=== PATIENT | female | born 1975 | race Caucasian/White ===

== ENCOUNTER → 2016-10-05 | Day surgery (SDC) | payer OTHER ==
[~2016-10-05] VITALS: Ht 165.1 cm; Wt 76.8 kg
[~2016-10-05] MED LIST: LIDOCAINE 1% MDV 20ML VIAL As Ordered ONE; LIDOCAINE 2% INJ 100 MG/5 ML SDV (FOR ANES.) As Ordered ONE; LR 1,000 ML IV SCH; MEPERIDINE INJ 25 MG/ML VIAL (J2175) IV PRN; METOCLOPRAMIDE INJ 10MG/2ML VIAL (J2765) IV PRN; MIDAZOLAM INJ 2 MG/2 ML VIAL (J2250) As Ordered ONE; MONOTAB PO; ONDANSETRON 4MG/2ML VIAL (J2405) As Ordered ONE; ONDANSETRON 4MG/2ML VIAL (J2405) IV PRN; PERCOCET 5MG/325MG TAB PO PRN; PROPOFOL 200 MG/20 ML VIAL As Ordered ONE; SILVER NITRATE APPLICATOR As Ordered ONE; ZOLO25TA PO; dexameTHASONE 4 MG/ML 1ML VIAL (J1100) As Ordered ONE; fentaNYL 100 MCG/2 ML INJECTION (J3010) As Ordered ONE; fentaNYL 100 MCG/2 ML INJECTION (J3010) IV PRN
[2016-10-05 06:40] LABS: MEAN CORPUSCULAR HEMOGLOBIN 29.8 pg (27.0-33.0); MEAN CORPUSCULAR HGB CONC 35.1 g/dl (32.0-36.5); MEAN CORPUSCULAR VOLUME 85.1 fl (80.0-96.0); RED CELL DISTRIBUTION WIDTH 12.9 % (11.5-14.5); WHITE BLOOD COUNT 5.2 K/mm3 (4.0-10.0)
[2016-10-05 06:53] LABS: CONTROL LINE HCG INT CTR LINE PRESENT
[2016-10-05 10:10] VITALS: BP 110/55
--- NOTE | 2016-10-05 11:09 | RO ---
DATE OF PROCEDURE: 10/05/2016 PREOPERATIVE DIAGNOSIS: Six months irregular heavy bleeding and with indicated workup of endometrial biopsy that showed a possible malignancy, but unclear. POSTOPERATIVE DIAGNOSIS: Six months irregular heavy bleeding and with indicated workup of endometrial biopsy that showed a possible malignancy, but unclear. OPERATIVE PROCEDURE: Dilation and curettage. SURGEON: Dr. Guero Saeed ORGAN PIPE FINISHER: ANESTHESIA: Monitored anesthesia care (MAC) with cervical block. ESTIMATED BLOOD LOSS: 10 mL. DRAINS: None. REPLACED: 600 mL of lactated Ringer's. SPECIMEN: Endometrial curettings. INDICATION: Please see preoperative diagnosis. DESCRIPTION OF PROCEDURE: The patient was taken to the operating room with an IV in place and MAC anesthesia was obtained. She was placed in the low lithotomy position, prepped and draped in normal sterile fashion. I grasped the cervix at the anterior lip with a tenaculum and injected approximately 6 mL of 1% lidocaine at 2, 4, 8 and 10 and dilated the cervix to approximately 16 Yemeni using Hanks dilators. The patient was sounded appropriately to approximately 8-9 cm and the sharp curette was placed into the uterine cavity and the entire endometrial cavity was then curetted until a gritty texture was noted throughout. All tissue and blood was recovered to Telfa pads times two. There was never fear of uterine perforation. The tenaculum was removed. Silver nitrate was used at both puncture sites and at one lidocaine injection site to obtain hemostasis. Hemostasis was confirmed and the vaginal vault was cleared out of all clots and debris. All instruments were removed from the vagina and the patient was awakened from anesthesia and transferred to the recovery area in stable condition with all counts correct.
== END ==
LOC: M SDC 06:12
PROVIDERS: ATTEND Obstetrics & Gynecology
DX: N85.01 Benign endometrial hyperplasia (principal); F32.9 Major depressive disorder, single episode, unspecified; M51.9 Unspecified thoracic, thoracolumbar and lumbosacral intervertebral disc disorder; Z88.8 Allergy status to other drugs, medicaments and biological substances; Z79.899 Other long term (current) drug therapy
CPT/HCPCS: 36415; 58120; 84703; 85027; 86850; 86900; 86901; 88305; J1100; J2250; J2405; J3010

== ENCOUNTER 2016-11-09 09:28 | Inpatient (IN) | payer OTHER ==
[~2016-11-09] VITALS: Ht 165.1 cm; Wt 74.4 kg
[~2016-11-09 09:28] MED LIST changes: +BUPIVACAINE/EPIN 0.25% 30 ML VIAL As Ordered ONE; +KETOROLAC 60 MG/2 ML VIAL (J1885) As Ordered ONE; -LIDOCAINE 1% MDV 20ML VIAL As Ordered ONE; -LR 1,000 ML IV SCH; -MEPERIDINE INJ 25 MG/ML VIAL (J2175) IV PRN; -METOCLOPRAMIDE INJ 10MG/2ML VIAL (J2765) IV PRN; -ONDANSETRON 4MG/2ML VIAL (J2405) IV PRN; -PERCOCET 5MG/325MG TAB PO PRN; +ROCURONIUM BROMIDE 50 MG/5 ML VIAL As Ordered ONE; -SILVER NITRATE APPLICATOR As Ordered ONE; -dexameTHASONE 4 MG/ML 1ML VIAL (J1100) As Ordered ONE; -fentaNYL 100 MCG/2 ML INJECTION (J3010) As Ordered ONE; -fentaNYL 100 MCG/2 ML INJECTION (J3010) IV PRN; +fentaNYL 250 MCG/5 ML INJECTION (J3010) As Ordered ONE
[2016-11-09] MEDS ORDERED: LR 1,000 ML IV SCH ×2 (09:30→14:30)
[2016-11-09 10:04] LABS: BASO % 0.7 % (0.0-1.0); EOS # 0.1 K/mm3 (0.0-0.50); EOS % 2.8 % (0.0-3.0); LARGE UNSTAINED CELL # 0.1 K/mm3 (0.0-0.4); LARGE UNSTAINED CELL % 1.7 % (0.0-4.0); LYMPH # 1.2 K/mm3 (1.5-4.5); LYMPH % 23.4 % (24.0-44.0); MEAN CORPUSCULAR HEMOGLOBIN 28.9 pg (27.0-33.0); MEAN CORPUSCULAR HGB CONC 33.6 g/dl (32.0-36.5); MONO # 0.3 K/mm3 (0.0-0.8); MONO % 5.8 % (0.0-5.0); NEUTROPHILS # 3.2 K/mm3 (1.8-7.7); NEUTROPHILS % 65.7 % (36.0-66.0); PLATELET COUNT, AUTOMATED 258 k/mm3 (150-450); RED CELL DISTRIBUTION WIDTH 13.5 % (11.5-14.5); WHITE BLOOD COUNT 4.9 K/mm3 (4.0-10.0)
[2016-11-09 10:09] LABS: CONTROL LINE HCG INT CTR LINE PRESENT
[2016-11-09] MEDS ORDERED: dexameTHASONE 4 MG/ML 1ML VIAL (J1100) As Ordered ONE (11:40)
[2016-11-09] MEDS ORDERED: METOCLOPRAMIDE INJ 10MG/2ML VIAL (J2765) As Ordered ONE (11:41)
[2016-11-09] MEDS ORDERED: HYDROmorphone HCL 2 MG/ML 1ML VIAL (J1170) As Ordered ONE (12:43)
[2016-11-09] MEDS ORDERED: BUPIVACAINE/EPIN 0.25% 30 ML VIAL XX ONE (12:44)
[2016-11-09] MEDS ORDERED: ONDANSETRON 4MG/2ML VIAL (J2405) As Ordered ONE (13:09)
[2016-11-09] MEDS ORDERED: GLYCOPYRROLATE INJ 0.2 MG/ML 2 ML VIAL As Ordered ONE (13:10)
[2016-11-09] MEDS ORDERED: NEOSTIGMINE 1MG/ML 5 ML SYRINGE (J2710) As Ordered ONE (13:10)
[2016-11-09] MEDS ORDERED: METHYLENE BLUE 1% 10 ML VIAL (Q9968) As Ordered ONE (13:26)
[2016-11-09] MEDS ORDERED: NS 1,000 ML IV SCH (14:21)
[2016-11-09] MEDS ORDERED: MORPHINE PCA 1MG/ML 100ML CADD As Ordered ONE (14:28)
[2016-11-09] MEDS ORDERED: PROMETHAZINE INJ 25 MG/ML VIAL (J2550) As Ordered ONE (14:28)
[2016-11-09] MEDS ORDERED: NALOXONE INJ 0.4 MG/1 ML VIAL (J2310) IV PRN (14:30)
[2016-11-09] MEDS ORDERED: ONDANSETRON 4MG/2ML VIAL (J2405) IV PRN ×3 (14:30)
[2016-11-09] MEDS ORDERED: MORPHINE PCA 1MG/ML 100ML CADD IV PRN (14:30)
[2016-11-09] MEDS ORDERED: diphenhydrAMINE INJ 50MG/ML VIAL (J1200) IV PRN (14:30)
[2016-11-09] MEDS ORDERED: PERCOCET 5MG/325MG TAB PO PRN (14:30)
[2016-11-09] MEDS ORDERED: NALBUPHINE HCL 10 MG/ML AMP (J2300) IV PRN (14:30)
[2016-11-09] MEDS ORDERED: PROMETHAZINE INJ 25 MG/ML VIAL (J2550) IV PRN (14:30)
[2016-11-09] MEDS ORDERED: EPIDURAL/PCA KEYS XX PRN (14:30)
[2016-11-09] MEDS ORDERED: fentaNYL 100 MCG/2 ML INJECTION (J3010) IV PRN (14:30)
[2016-11-09] MEDS ORDERED: PROMETHAZINE INJ 25 MG/ML VIAL (J2550) IV ONE (14:45)
[2016-11-09 15:50] VITALS: BP 125/56
[2016-11-09 16:30] VITALS: BP 134/72
[2016-11-09] MEDS: LR 1,000 ML IV SCH ×2 (16:55→22:30)
[2016-11-09] MEDS: ACETAMINOPHEN 500 MG TAB PO SCH ×2 (16:56→21:49)
[2016-11-09 17:30] VITALS: BP 129/68
[2016-11-09 18:30] VITALS: BP 131/67
[2016-11-09 19:30] VITALS: BP 132/64
[2016-11-09 20:30] VITALS: BP 119/58
[2016-11-09] MEDS: DOCUSATE SODIUM 100 MG CAP PO SCH (21:48)
[2016-11-10] VITALS: BP 120/59
[2016-11-10 04:00] VITALS: BP 97/55
[2016-11-10] MEDS: LR 1,000 ML IV SCH (04:35)
[2016-11-10 07:19] LABS: BASO % 0.1 % (0.0-1.0); EOS % 0.2 % (0.0-3.0); LARGE UNSTAINED CELL # 0.1 K/mm3 (0.0-0.4); LARGE UNSTAINED CELL % 1.1 % (0.0-4.0); LYMPH # 1.3 K/mm3 (1.5-4.5); LYMPH % 10.4 % (24.0-44.0); MEAN CORPUSCULAR HEMOGLOBIN 29.5 pg (27.0-33.0); MEAN CORPUSCULAR HGB CONC 34.4 g/dl (32.0-36.5); MEAN CORPUSCULAR VOLUME 85.8 fl (80.0-96.0); MONO # 0.5 K/mm3 (0.0-0.8); MONO % 4.6 % (0.0-5.0); NEUTROPHILS # 9.2 K/mm3 (1.8-7.7); NEUTROPHILS % 83.5 % (36.0-66.0); PLATELET COUNT, AUTOMATED 216 k/mm3 (150-450); RED CELL DISTRIBUTION WIDTH 13.4 % (11.5-14.5)
--- NOTE | 2016-11-10 07:21 | RO ---
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 POSTOPERATIVE DIAGNOSIS: Complex hyperplasia without atypia. PROCEDURE: SURGEON: Dylan Dickens MD HEAT REGULATOR: Deonna Bansal MD ANESTHESIA: general So. IV FLUIDS: 2000 mL isotonic fluid. URINE OUTPUT: 400 mL Mendoza catheter. ESTIMATED BLOOD LOSS: 150 mL. INDICATION FOR SURGERY: Patient is a 41-year-old, (G) 2, para (P) 2, with abnormal uterine bleeding, on endometrial biopsy and subsequent dilation and curettage (D and C) found to have complex hyperplasia without atypia. The patient had a long discussion in regards to possible treatments and risks/benefits/alternatives/indications for both and elects to undergo surgical management via a hysterectomy. The risks, benefits, indications and alternatives to the procedure were reviewed with the patient and informed consent was obtained. The patient was taken to the operating room where general anesthesia was obtained without difficulty. The patient was then placed in a low lithotomy position using Ramon stirrups and arms were tucked with padding. An exam under anesthesia demonstrated a long vaginal length, approximately 8 week sized uterus with moderate descent. No abnormal palpated or fullness on adnexal exam. She was then prepped and draped in a normal sterile fashion and a Mendoza catheter was placed. After a time-out was performed, a sterile speculum was placed in the patient's vagina and the cervix was visualized. A single tooth tenaculum was used to grasp the anterior lip of the cervix. An #0 Vicryl stitch was used for uterine manipulation and the single tooth tenaculum was removed. A [employer] uterine manipulator with a large colpotomy ring and a vaginal occluder balloon were placed to provide means to manipulate the uterus. The speculum was then removed from the patient's vagina. After gloves were exchanged, attention was then returned to the patient's abdomen where a 5 mm infraumbilical incision was made. A 5 mm trocar and sleeve were carefully introduced into the peritoneal cavity under direct visualization in a 9 degree angle while tenting up the abdominal wall. Intraperitoneal placement was confirmed under direct visualization with the laparoscope with an entry pressure of less than 5 mmHg. A pneumoperitoneum was established and a 360 degree evaluation was performed demonstrating no injury at site as well as normal appearing liver edge, spleen, gallbladder and intestines. After several liters of CO2 gas was performed to a maximum pressure of 15 mmHg, two additional port sites including a 5 mm left lower quadrant and a 5 mm right lower quadrant were placed under direct visualization, stabilizing the uterus with the manipulator and with the use of a blunt grasper. The LigaSure device was used to clamp, cut and ligate the round ligaments bilaterally. The anterior broad ligament was then incised along the bladder reflection bilaterally and the bladder was dissected off the lower uterine segment until the endopelvic fascia was visualized. Prior to this, the ureters on both sides were identified and followed along the entire length of the pelvic sidewall. The bilateral fallopian tubes and utero-ovarian ligaments were then ligated as close as possible to the uterine corpus with the assistance of a harmonic scalpel. The pedicles were reinspected and excellent hemostasis noted. The uterine arteries were then identified, skeletonized, electro dissected and ligated using LigaSure device. The uterosacral and cardinal ligaments were transected bilaterally using a combination of LigaSure and a harmonic. The anterior and posterior colpotomy was completed in a 360 degrees fashion using harmonic scalpel using the colpotomy ring as a guide. The entire cervix and uterus were successfully amputated from the vagina and removed vaginally. Excellent hemostasis was noted. Next, the vagina was occluded with a sterile glove to maintain pneumoperitoneum and noticed no acute bleeding. Attention was then turned vaginal where the vaginal cuff was closed with #0 Vicryl in a running locked fashion. Hemostasis was appreciated at the end of this. The cystoscope was then primed and advanced through the urethra into the bladder after the Mendoza catheter was removed in routine fashion. Methylene blue was provided to this. Both uterine orifices were identified and bilateral efflux of methylene blue stained urine was visualized. A survey of the bladder demonstrated no defects or visible suture. The cystoscope was then removed in routine fashion and a Mendoza catheter replaced to again drain the bladder. After gown and gloves were again exchanged, attention was returned to the abdomen. A pneumoperitoneum was then reestablished and was copiously irrigated. All pedicles were noted to be hemostatic again. The pneumoperitoneum was then released and the gas was removed in routine fashion with the remaining ports being removed under direct visualization. The skin incisions were then reapproximated with #4-0 Monocryl and covered with Dermabond. 1/4% Marcaine with epinephrine was then utilized for anesthetic for all trocar sites. A manual exam was performed and the vagina demonstrated excellent suspension and elevation. A vaginal sweep demonstrated no retained foreign objects within the vagina. At the completion of the case, sponge, needle and lap counts correct times two. The patient was taken to recovery in stable condition. Prior to skin incision, 2 grams of Ancef were provided in routine fashion.
[2016-11-10] MEDS ORDERED: oxyCODONE 5MG TAB PO PRN (07:30)
[2016-11-10 08:00] VITALS: BP 131/64
[2016-11-10] MEDS: ACETAMINOPHEN 500 MG TAB PO SCH ×2 (09:21→13:31)
[2016-11-10] MEDS: DOCUSATE SODIUM 100 MG CAP PO SCH (09:21)
[2016-11-10 12:00] VITALS: BP 125/60
[2016-11-10] MEDS ORDERED: TYLE500T78 PO (13:53)
[2016-11-10] MEDS ORDERED: COLA100C PO (13:53)
== END 2016-11-10 14:20 | disposition home or self-care (01) | DRG 743 ==
LOC: M OR 09:28 → M PED 15:59
PROVIDERS: ADMIT Student in an Organized Health Care Education/Training Program; ATTEND Student in an Organized Health Care Education/Training Program
PROC: 0UTC4ZZ Resection of Cervix, Percutaneous Endoscopic Approach (ICD-10-PCS; 2016-11-09)
PROC: 0UT74ZZ Resection of Bilateral Fallopian Tubes, Percutaneous Endoscopic Approach (ICD-10-PCS; 2016-11-09)
PROC: 0TJB8ZZ Inspection of Bladder, Via Natural or Artificial Opening Endoscopic (ICD-10-PCS; 2016-11-09)
PROC: 0UT94ZZ Resection of Uterus, Percutaneous Endoscopic Approach (ICD-10-PCS; principal; 2016-11-09 11:00)
DX: N85.01 Benign endometrial hyperplasia (principal); F32.9 Major depressive disorder, single episode, unspecified; Z79.899 Other long term (current) drug therapy

== ENCOUNTER → 2016-11-28 | Outpatient (CLI) | payer OTHER ==
[~2016-11-28] MED LIST changes: -BUPIVACAINE/EPIN 0.25% 30 ML VIAL As Ordered ONE; +COLA100C PO; -KETOROLAC 60 MG/2 ML VIAL (J1885) As Ordered ONE; -LIDOCAINE 2% INJ 100 MG/5 ML SDV (FOR ANES.) As Ordered ONE; -MIDAZOLAM INJ 2 MG/2 ML VIAL (J2250) As Ordered ONE; -ONDANSETRON 4MG/2ML VIAL (J2405) As Ordered ONE; -PROPOFOL 200 MG/20 ML VIAL As Ordered ONE; -ROCURONIUM BROMIDE 50 MG/5 ML VIAL As Ordered ONE; +TYLE500T78 PO; -fentaNYL 250 MCG/5 ML INJECTION (J3010) As Ordered ONE
--- NOTE | 2016-11-28 17:25 | REP ---
RENAL AND BLADDER ULTRASOUND: Real-time sonographic evaluation of the kidneys are performed. Kidneys are normal in size and echotexture, right kidney measuring 11.4 x 4.1 x 5.3 cm and left kidney 11.4 x 5.0 x 4.6 cm. There is no hydronephrosis or nephrolithiasis. Bilaterally. Hypoechoic nodule in the liver measures 1.8 x 2.3 x 1.7 cm, probably representing a hemangioma. Urinary bladder is distended with no mass or calculus. There are bilateral ureteral jets of the urinary bladder with Doppler color evaluation. IMPRESSION: Negative renal and bladder ultrasound. Hyperechoic nodule in the liver probably represents a hemangioma 1.8 x 2.3 x 1.[address] or MRI with contrast to evaluate. Signed by Guero Cohen MD 11/29/2016 03:28 P
== END ==
LOC: M RAD 16:26
PROVIDERS: ATTEND Obstetrics & Gynecology
DX: K76.89 Other specified diseases of liver (principal); R39.198 Other difficulties with micturition

== ENCOUNTER → 2018-04-20 | Outpatient (CLI) | payer OTHER | LOC: M RAD 15:18 | DX: Z12.31 Encounter for screening mammogram for malignant neoplasm of breast (principal); N60.31 Fibrosclerosis of right breast; N60.32 Fibrosclerosis of left breast | CPT/HCPCS: 77067 ==

== ENCOUNTER → 2018-11-22 | Outpatient (CLI) | payer OTHER ==
[~2018-11-22] MED LIST changes: -COLA100C PO; +COLA100C5 PO
--- NOTE | 2018-12-05 00:52 | ECWPNPC ---
PATIENT NAME: JULES LOZANO : 1975 GENDER: FEMALE VISIT DATE: 11/22/2018 DISCHARGE DATE: 11/22/18 1625 VISIT LOCKED DATE TIME: PHYSICIAN: KATE CLARK MD RESOURCE: KATE CLARK MD REASON FOR APPOINTMENT 1. LUMBAR PAIN HISTORY OF PRESENT ILLNESS FALL RISK SCREENING: SCREENING : NO FALLS IN THE PAST YEAR. PAIN SCREENING: PATIENT HAS A COMPLAINT OF ACUTE OR CHRONIC PAIN :YES 43 YEAR OLD FEMALE PATIENT WITH A HISTORY OF CHRONIC LOW BACK PAIN. THE PATIENT DESCRIBES THE PAIN ACHING, SHARP, TENDER, AND CONTINUOUS WITH A PAIN SCORE OF 1-9/10 DEPENDING ON PHYSICAL ACTIVITY. THE PATIENT SAYS THAT HER PAIN STARTED ABOUT A YEAR AND A HALF AGO SPONTANEOUSLY. THE PATIENT SAYS THAT HER PAIN IS MAINLY LOCATED AT THE RIGHT SIDE OF HER LOW BACK. THE PATIENT SAYS THE PAIN SOMETIMES GOES DOWN HER RIGHT LEG, BUT SHE IS CURRENTLY USING GABAPENTIN THAT IS HELPING WITH THE PAIN DOWN HER LEG. PATIENT DENIES UNEXPLAINABLE WEIGHT LOSS, FEVER, CHILLS, NEW CHANGES ON HER URINARY OR BOWEL CONTROL. CURRENT MEDICATIONS TAKING ZOLOFT 25 MG TABLET 1 TABLET ORALLY ONCE A DAY TAKING GABAPENTIN 300 MG CAPSULE 1 CAPSULE ORALLY ONCE A DAY NOT-TAKING FLONASE 50 MCG/DOSE INHALER 2 SPRAYS IN EACH NOSTRIL NASALLY ONCE A DAY MEDICATION LIST REVIEWED AND RECONCILED WITH THE PATIENT PAST MEDICAL HISTORY CHRONIC LOW BACK ANXIETY ALLERGIES ASPIRIN: SWELLING - ALLERGY IBUPROFEN: SWELLING - ALLERGY SURGICAL HISTORY HYSTERECTOMY 2017 FAMILY HISTORY FATHER: ALIVE 66 YRS MOTHER: ALIVE 65 YRS [facility]. SOCIAL HISTORY GENERAL: TOBACCO USE ARE YOU A:FORMER SMOKER HOW LONG HAS IT BEEN SINCE YOU LAST SMOKED?> 10 YEARS LATEX QUESTIONNAIRE LATEX ALLERGY : HAVE YOU EVER DEVELOPED ANY TYPE OF REACTION AFTER HANDLING LATEX PRODUCTS SUCH RUBBER GLOVES, CONDOMS, DIAPHRAGMS, BALLOONS, SOCKS, OR UNDERWEAR?NO LATEX ALLERGY : HAVE YOU EVER DEVELOPED ANY TYPE OF REACTION DURING OR AFTER DENTAL APPOINTMENT, VAGINAL/RECTAL EXAMINATION, SURGICAL PROCEDURE, OR ANY OTHER EXPOSURE?NO LATEX RISK : HAVE YOU EVER HAD ANY DIFFICULTY BREATHING OR HIVES AFTER EATING OR HANDLING ANY FRUITS, OR VEGETABLES; SUCH KIWI, BANANAS, STONE FRUITS, OR CHESTNUTSNO LATEX RISK : DO YOU HAVE A PREVIOUS PERSONAL HISTORY OF MORE THAN NINE SURGERIES, SPINA BIFIDA, OR REPEATED CATHERTIZATIONS? NO LATEX RISK : ARE YOU FREQUENTLY EXPOSED TO LATEX PRODUCTS IN YOUR OCCUPATION?NO DATE ASKED : 11/22/2018 CAFFEINE CAFFEINE USE?YES HOW OFTEN AND HOW MUCH? OCCASIONAL OCCUPATION: ACTIVE . DIET: REGULAR. EXERCISE: NO REGULAR EXERCISE, WALKS. MARITAL STATUS: . NEW PATIENT PAIN DIARY PATIENT DESCRIBES PAIN :ACHING, HAVE IT ALL THE TIME, IT COMES AND GOES, SHARP FROM 0-10, WHAT LEVEL IS YOUR PAIN TODAY?1 PRECIPITATING FACTORS FIRST WAKING UP IN MORNING, RUNNING, STANDING ALLEVIATING FACTORS MEDICATIONS IMPACT ON FUNCTION MAJOR IMPACT, UNABLE TO DO DAILY DUTIES IS THERE A CHANCE YOU COULD BE ?NO HAVE YOU BEEN SICK IN THE LAST WEEK (COLD, COUGH, FEVER, FLU, ETC)NO DO YOU TAKE ANY BLOOD THINNERS?NO DO YOU HAVE ANY RASHES OR OPEN SORES?NO ANY CHANGE IN BOWEL OR BLADDER CONTROL?NO ARE YOU ALLERGIC TO SHELLFISH OR IV DYE?NO ARE YOU DIABETIC?NO DO YOU HAVE A PACEMAKER OR DEFIBRILLATOR?NO ANY NEW PROBLEMS WITH MEDICINES OR NEW ALLERGIESNO ANY NEW PATTERNS OF PAIN OR NUMBNESS?NO ANY CHANGE IN YOUR MEDICAL CONDITION?NO HAVE YOU FALLEN IN THE LAST 6 MONTHS?NO DO YOU USE ANY TYPE OF TOBACCO (SMOKE, SMOKELESS, CHEW, ETC.)NO ARE YOU ABUSED, NEGLECTED, OR IN AN UNSAFE ENVIRONMENT?NO DO YOU HAVE THOUGHTS OF HURTING YOURSELF OR SOMEONE ELSE?YES PAIN CLINIC PFS, CLERGY, PUBLIC HEALTH REFERRALS WAS THE PROVIDER NOTIFIED OF ANY PERTINENT INFO?YES HAS THE PATIENT BEEN EDUCATED REGARDING HIS/HER PLAN OF CARE?YES ORIENTED TO [facility] HAS THE PATIENT BEEN EDUCATED REGARDING PAIN, THE RISK FOR PAIN, THE IMPORTANCE OF EFFECTIVE PAIN MANAGEMENT, AND THE PAIN ASSESSMENT PROCESS?YES ADVANCE DIRECTIVE ADVANCE DIRECTIVE DISCUSSED WITH PATIENT:YES NO HCP, ACTIVE HOSPITALIZATION/MAJOR DIAGNOSTIC PROCEDURE NO HOSPITALIZATION HISTORY. REVIEW OF SYSTEMS REVIEWED BY: PROVIDER: KATE CLARK MD . CONSTITUTIONAL: ANY CHANGE IN YOUR MEDICAL CONDITION? NO . CHILLS NO . FEVER NO . INFECTION: DO YOU HAVE NEW INFECTIONS? NO . DO YOU HAVE HISTORY OF MRSA? NO . MUSCULOSKELETAL: ANY NEW PATTERNS OF PAIN OR NUMBNESS? YES, ARM GETTING WORSE . SYTEMIC LUPUS NO . GASTROENTEROLOGY: ANY NEW CHANGE IN BOWEL CONTROL? NO . BARRETTS ESOPHAGUS NO . CIRRHOSIS NO . HEPATITIS NO . LIVER FAILURE NO . ACID REFLUX NO . UNEXPLAINED WEIGHT LOSS NO . GENITOURINARY: ANY NEW CHANGE IN BLADDER CONTROL? NO . IS THERE A CHANCE YOU COULD BE ? NO . HEMATOLOGY/LYMPH: DO YOU TAKE ANY BLOOD THINNERS? (FOR EXAMPLE- COUMADIN, PLAVIX, AGGRENOX, PLATEL, PRADAXA, OR XARELTO) NO . WHEN WAS YOUR LAST DOSE? DATE: TIME: . LOW PLATELET COUNT NO . SICKLE CELL DISEASE NO . VON WILLIEBRANDS NO . FACTOR V LEIDEN NO . THALLASEMIA NO . ANEMIA NO . EASY BRUISING NO . NEUROLOGY: HAVE YOU FALLEN IN THE PAST 12 MONTHS? NO . ANY NEW EXTREMITY NUMBNESS OR WEAKNESS? NO . HEAD INJURY NO . DEMENTIA NO . CEREBRAL PALSY NO . MULTIPLE SCLEROSIS NO . DIZZINESS NO . HEADACHE NO . STROKES NO . VERTIGO NO . CARDIOLOGY: DO YOU HAVE A PACEMAKER OR DEFIBRILLATOR? NO . ANGINA NO . HEART ATTACK NO . HEART SURGERY NO . CONGESTIVE HEART FAILURE/FLUID OVERLOAD NO . CHEST PAIN NO . HIGH BLOOD PRESSURE NO . IRREGULAR HEART BEAT NO . RESPIRATORY: HAVE YOU BEEN SICK IN THE PAST WEEK? NO . FEVER NO . FLU LIKE SYMPTOMS? NO . CPAP NO . BYPAP NO . ASTHMA NO . EMPHYSEMA NO . CHRONIC LUNG DISEASES NO . SHORTNESS OF BREATH ON EXERTION NO . COUGH NO . SNORING NO . INTEGUMENTARY: DO YOU HAVE ANY RASHES OR OPEN SORES? NO . ALLERGIC/IMMUNO: ARE YOU ALLERGIC TO IV DYE? NO . ANY NEW ALLERGIES? NO . PSYCHIATRIC: DO YOU HAVE THOUGHTS OF HURTING YOURSELF OR SOMEONE ELSE? NO . ARE YOU ABUSED, NEGLECTED, OR IN AN UNSAFE ENVIRONMENT? NO . ENDOCRINOLOGY: ARE YOU DIABETIC? NO . THYROID DISORDER NO . OTHER: DO YOU NEED ANY PRESCRIPTIONS? NO . IF YES, PLEASE LIST: ____ . ANY NEW PROBLEMS WITH YOUR MEDICATIONS? NO . WHEN DID YOU LAST EAT? ____ . WHEN DID YOU LAST DRINK? ____ . WHAT DID YOU LAST DRINK? ____ . NAME OF PERSON DRIVING YOU HOME? SHAHZAD LOZANO . DO YOU HAVE ANY OTHER QUESTIONS OR CONCERNS NO . VITAL SIGNS WT 176 LBS, HT 66 IN, BMI 28.40 INDEX, BP 135/67 MM HG, HR 64 /MIN, RR 16 /MIN, TEMP 97.4 F, OXYGEN SAT % 98%, SAFE IN ENV? (Y/N) Y, NA INITIALS SC 14:38, REVIEWED BY: SHIKHA. EXAMINATION GENERAL EXAMINATION: PATIENT IS ALERT O X 3 AND COOPERATIVE. LUNGS CLEAR, TO AUSCULTATION. HEART: NO MURMURS OR GALLOPS; FACIAL CRANIAL NERVES ARE GROSSLY NORMAL. GOOD SYMMETRY OF FACIAL MUSCLE MOVEMENT. NORMAL VISUAL RETANA. TENDERNESS OVER THE RIGHT SACROILIAC JOINT. FABERE TEST IS POSITIVE FOR RIGHT SACROILIAC JOINT DYSFUNCTION. MRI OF THE LUMBAR SPINE DONE ON 08/15/2017 SHOWS BULGING DISCS AND FACET ARTHROPATHY CHANGES AT MULTIPLE LEVELS. 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 LOZANO'S PAIN MANAGEMENT CASE. DUE TO THE SACROILIAC JOINT DYSFUNCTION, I WOULD LIKE TO MOVE FORWARD WITH A RIGHT SACROILIAC JOINT BLOCK AT THIS TIME. WE DISCUSSED THE BENEFITS, RISKS, AND ALTERNATIVES OF THE INJECTION AND THE PATIENT WOULD LIKE TO PROCEED. THE PATIENT WILL FOLLOW UP A FEW WEEKS AFTER THE INJECTION. INSTRUCTIONS WERE GIVEN, QUESTIONS WERE ANSWERED, PATIENT REPORTS UNDERSTANDING AND AGREES WITH THE PLAN. I, JP MONTES, DOCUMENTED THE ABOVE INFORMATION ACTING A SCRIBE FOR DR. CLARK. I HAVE REVIEWED THE ABOVE DOCUMENT, WRITTEN BY JP ROSALESIBLuis AND I VERIFY THAT IT IS ACCURATE. DEAR DR. PAYTON:THANK YOU FOR YOUR KIND REFERRAL OF MRS. LOZANO. IF YOU WANT TO DISCUSS HER CASE WITH ME PLEASE CALL ME AT THE PAIN CENTER AT [phone]. SINCERELY,KATE CLARK, [facility] . PROCEDURE CODES FA211 ESTABILISHED PATIENT [facility] FACILITY CHARGE [id number] CURRENT MEDS W/DOSAGES DOCUMENTED G8730 PAIN ASSESS POS TOOL F/U PLAN DOC DISPOSITION & COMMUNICATION FOLLOW UP 3 WEEKS ELECTRONICALLY SIGNED BY KATE CLARK MD, MD ON 12/04/2018 AT 11:37 AM EDT DISCLAIMER : THIS IS A VISIT SUMMARY EXTRACTED FROM THE [facility] CHART. IT IS NOT A COPY OF THE [facility] PROGRESS NOTE. MTDD
== END ==
LOC: M PAIN 14:30
PROVIDERS: ATTEND Anesthesiology
DX: M46.1 Sacroiliitis, not elsewhere classified (principal); M54.16 Radiculopathy, lumbar region; G89.29 Other chronic pain; F41.9 Anxiety disorder, unspecified; Z79.899 Other long term (current) drug therapy; Z88.6 Allergy status to analgesic agent; Z87.891 Personal history of nicotine dependence

== ENCOUNTER → 2018-12-04 | Outpatient (CLI) | payer OTHER ==
[~2018-12-04] MED LIST changes: +BUPIVACAINE HCL 0.25% 30 ML VIAL As Ordered ONE; +ISOVUE-M 300 61% 15ML VIAL (Q9967) As Ordered ONE; +LIDOCAINE 1% SDV INJ 30 ML VIAL As Ordered ONE; +TRIAMCINOLONE ACETONIDE SUSP 40 MG/ML VIAL (J3301) As Ordered ONE; +diazePAM 5 MG TAB As Ordered ONE; +oxyCODONE 5MG TAB As Ordered ONE
--- NOTE | 2018-12-05 10:18 | REP ---
PARTIAL SI JOINT SERIES: Two views. HISTORY: Bilateral sacroiliac joint block for pain. 1 minute 5 seconds of fluoroscopy time is reported. FINDINGS: A sequence of two last image hold fluoroscopically obtained spot radiographs of the SI joints document needle position and contrast injection associated with SI joint injection procedure. Electronically Signed by Aric Burden MD 12/05/2018 03:53 P
--- NOTE | 2018-12-09 23:53 | ECWPNPC ---
PATIENT NAME: JULES LOZANO : 1975 GENDER: FEMALE VISIT DATE: 12/04/2018 DISCHARGE DATE: 12/04/18 1316 VISIT LOCKED DATE TIME: PHYSICIAN: KATE CLARK MD RESOURCE: KATE CLARK MD REASON FOR APPOINTMENT 1. BILAT SIJ PENDING AUTH HISTORY OF PRESENT ILLNESS HISTORY OF PRESENT ILLNESS: PAIN THE PATIENT DESCRIBES THE PAIN... FALL RISK SCREENING: SCREENING :NO FALLS REPORTED IN THE LAST YEAR CURRENT MEDICATIONS TAKING ZOLOFT 25 MG TABLET 1 TABLET ORALLY ONCE A DAY, NOTES: 12/03 2200 TAKING GABAPENTIN 300 MG CAPSULE 1 CAPSULE ORALLY ONCE A DAY, NOTES: 12/03 1200 DISCONTINUED FLONASE 50 MCG/DOSE INHALER 2 SPRAYS IN EACH NOSTRIL NASALLY ONCE A DAY, NOTES: NEVER TOOK MEDICATION LIST REVIEWED AND RECONCILED WITH THE PATIENT PAST MEDICAL HISTORY CHRONIC LOW BACK ANXIETY ALLERGIES ASPIRIN: SWELLING - ALLERGY IBUPROFEN: SWELLING - ALLERGY SURGICAL HISTORY HYSTERECTOMY 2016 FAMILY HISTORY FATHER: ALIVE 66 YRS, NO KNOWN MEDICAL PROBLEMS MOTHER: ALIVE 65 YRS, NO KNOWN MEDICAL PROBLEMS [facility]. SOCIAL HISTORY GENERAL: TOBACCO USE ARE YOU A:FORMER SMOKER HOW LONG HAS IT BEEN SINCE YOU LAST SMOKED?> 10 YEARS LATEX QUESTIONNAIRE LATEX ALLERGY : HAVE YOU EVER DEVELOPED ANY TYPE OF REACTION AFTER HANDLING LATEX PRODUCTS SUCH RUBBER GLOVES, CONDOMS, DIAPHRAGMS, BALLOONS, SOCKS, OR UNDERWEAR?NO LATEX ALLERGY : HAVE YOU EVER DEVELOPED ANY TYPE OF REACTION DURING OR AFTER DENTAL APPOINTMENT, VAGINAL/RECTAL EXAMINATION, SURGICAL PROCEDURE, OR ANY OTHER EXPOSURE?NO LATEX RISK : HAVE YOU EVER HAD ANY DIFFICULTY BREATHING OR HIVES AFTER EATING OR HANDLING ANY FRUITS, OR VEGETABLES; SUCH KIWI, BANANAS, STONE FRUITS, OR CHESTNUTSNO LATEX RISK : DO YOU HAVE A PREVIOUS PERSONAL HISTORY OF MORE THAN NINE SURGERIES, SPINA BIFIDA, OR REPEATED CATHERTIZATIONS? NO LATEX RISK : ARE YOU FREQUENTLY EXPOSED TO LATEX PRODUCTS IN YOUR OCCUPATION?NO DATE ASKED : 12/04/2018 ALCOHOL SCREENING DID YOU HAVE A DRINK CONTAINING ALCOHOL IN THE PAST YEAR?YES HOW OFTEN DID YOU HAVE A DRINK CONTAINING ALCOHOL IN THE PAST YEAR?TWO TO THREE TIMES PER WEEK (3 POINTS) HOW MANY DRINKS DID YOU HAVE ON A TYPICAL DAY WHEN YOU WERE DRINKING IN THE PAST YEAR?1 OR 2 (0 POINTS) HOW OFTEN DID YOU HAVE SIX OR MORE DRINKS ON ONE OCCASION IN THE PAST YEAR?NEVER (0 POINTS) POINTS3 INTERPRETATIONPOSITIVE RECREATIONAL DRUG USE DRUG USE?NO CAFFEINE CAFFEINE USE?YES HOW OFTEN AND HOW MUCH? OCCASIONAL ANGLICAN [id number] JEWISH LANGUAGE LANGUAGES SPOKEN:GREEK EDUCATION LEVEL OF EDUCATION:FINISHED COLLEGE LEARNING BARRIERS / SPECIAL NEEDS BARRIERS TO LEARNING?NO HEARING IMPAIRED?NO VISION IMPAIRED?YES :CORRECTIVE LENSES COGNITIVELY IMPAIRED?NO READINESS TO LEARN?YES LEARNING PREFERENCES?NO LEARNING CAPABILITIES PRESENT?YES EMOTIONAL BARRIERS?NO SPECIAL DEVICES?NO WOOD GETTER NEEDED?NO DOMESTIC VIOLENCE DO YOU FEEL SAFE IN YOUR ENVIRONMENT?YES OCCUPATION: ACTIVE . DIET: REGULAR. EXERCISE: NO REGULAR EXERCISE, WALKS. MARITAL STATUS: . PAIN CLINIC PFS, CLERGY, PUBLIC HEALTH REFERRALS WAS THE PROVIDER NOTIFIED OF ANY PERTINENT INFO? N/A HAS THE PATIENT BEEN EDUCATED REGARDING HIS/HER PLAN OF CARE?YES ORIENTED TO [facility] HAS THE PATIENT BEEN EDUCATED REGARDING PAIN, THE RISK FOR PAIN, THE IMPORTANCE OF EFFECTIVE PAIN MANAGEMENT, AND THE PAIN ASSESSMENT PROCESS?YES ADVANCE DIRECTIVE ADVANCE DIRECTIVE DISCUSSED WITH PATIENT:YES 12/04/18 PT. DOES NOT HAVE ANY ADVANCED DIRECTIVES AND SHE DECLINES INFORMATION ON HCP AT THIS TIME. AD HOSPITALIZATION/MAJOR DIAGNOSTIC PROCEDURE HYSTERECTOMY 2017 REVIEW OF SYSTEMS REVIEWED BY: PROVIDER: . CONSTITUTIONAL: ANY CHANGE IN YOUR MEDICAL CONDITION? NO . CHILLS NO . FEVER NO . INFECTION: DO YOU HAVE NEW INFECTIONS? NO . DO YOU HAVE HISTORY OF MRSA? NO . MUSCULOSKELETAL: ANY NEW PATTERNS OF PAIN OR NUMBNESS? NO . GASTROENTEROLOGY: ANY NEW CHANGE IN BOWEL CONTROL? NO . GENITOURINARY: ANY NEW CHANGE IN BLADDER CONTROL? NO . IS THERE A CHANCE YOU COULD BE ? NO . HEMATOLOGY/LYMPH: DO YOU TAKE ANY BLOOD THINNERS? (FOR EXAMPLE- COUMADIN, PLAVIX, AGGRENOX, PLATEL, PRADAXA, OR XARELTO) NO . WHEN WAS YOUR LAST DOSE? DATE: TIME: . NEUROLOGY: HAVE YOU FALLEN IN THE PAST 12 MONTHS? YES X 1 SLIPPED ON ICE, NO INJURY . ANY NEW EXTREMITY NUMBNESS OR WEAKNESS? NO . CARDIOLOGY: DO YOU HAVE A PACEMAKER OR DEFIBRILLATOR? NO . RESPIRATORY: HAVE YOU BEEN SICK IN THE PAST WEEK? NO . FEVER NO . FLU LIKE SYMPTOMS? NO . COUGH NO . INTEGUMENTARY: DO YOU HAVE ANY RASHES OR OPEN SORES? NO . ALLERGIC/IMMUNO: ARE YOU ALLERGIC TO IV DYE? NO . ANY NEW ALLERGIES? NO . PSYCHIATRIC: DO YOU HAVE THOUGHTS OF HURTING YOURSELF OR SOMEONE ELSE? NO . ARE YOU ABUSED, NEGLECTED, OR IN AN UNSAFE ENVIRONMENT? NO . ENDOCRINOLOGY: ARE YOU DIABETIC? NO . OTHER: DO YOU NEED ANY PRESCRIPTIONS? NO . IF YES, PLEASE LIST: ____ . ANY NEW PROBLEMS WITH YOUR MEDICATIONS? NO . WHEN DID YOU LAST EAT? 12/03 1799 . WHEN DID YOU LAST DRINK? 12/04 629 . WHAT DID YOU LAST DRINK? WATER . NAME OF PERSON DRIVING YOU HOME? ARELY CARRIZALES . DO YOU HAVE ANY OTHER QUESTIONS OR CONCERNS NO PT. HAS NOT HAD ANY VACCINES IN THE PAST 30 DAYS . VITAL SIGNS WT 173.0 LBS, HT 66 IN, BMI 27.92 INDEX, BP 117/69 MM HG, HR 63 /MIN, RR 16 /MIN, TEMP 97.8 F, OXYGEN SAT % 99%, SAFE IN ENV? (Y/N) Y, NA INITIALS AW 1052, REVIEWED BY: AD, LMP: N/A. ASSESSMENTS SACROILIITIS, NOT ELSEWHERE CLASSIFIED - M46.1 (PRIMARY) TREATMENT SACROILIITIS, NOT ELSEWHERE CLASSIFIED [facility] FLUORO GUIDANCE (PAIN)[id number] PROCEDURES PN SI PRE PROCEDURE DIAGNOSIS SACROILIITIS, SACROILIAC JOINT DYSFUNCTION POST PROCEDURE DIAGNOSIS SACROILIITIS, SACROILIAC JOINT DYSFUNCTION PROCEDURE BILATERAL SACROILIAC JOINT BLOCK SURGEON DR. KATE CLARK CAR ATTENDANT NONE ANESTHESIA LOCAL PRE PROCEDURE NOTE PATIENT WITH HISTORY OF CHRONIC LOW BACK PAIN. I EVALUATED THE PATIENT AND REVIEWED THE CHART. I WENT OVER THE RISKS, ALTERNATIVES, AND BENEFITS ASSOCIATED WITH THIS PROCEDURE. THE PATIENT WOULD LIKE TO PROCEED AND GAVE CONSENT TO PERFORM THE PROCEDURE. THE PATIENT DENIES UNEXPLAINABLE WEIGHT LOSS, FEVER, CHILLS, OR NEW CHANGES IN URINARY OR BOWEL CONTROL DESCRIPTION OF PROCEDURE THE PATIENT WAS BROUGHT TO THE PROCEDURE ROOM AND PLACED IN THE PRONE POSITION. THE LUMBOSACRAL AREA WAS CLEANED WITH CHLORAPREP SOLUTION AND DRAPED ASEPTICALLY. THE PROCEDURE WAS DONE UNDER STERILE CONDITIONS. I CHECKED LATERALITY AND THE LEVEL WHERE THE PROCEDURE WAS GOING TO BE PERFORMED WITH THE PATIENT AND THE SUPPORTING STAFF AT THE MOMENT OF THE TIME OUT IN THE PROCEDURE ROOM. UNDER FLUOROSCOPIC GUIDANCE, TARGET POINT WAS SELECTED AT THE LOWER BORDER OF THE RIGHT AND LEFT SACROILIAC JOINT. TARGET POINT WAS SELECTED AFTER MEDIAL ROTATION AND TILT OF THE MAGNIFIER OF THE C-ARM. LIDOCAINE WAS USED TO NUMB THE SKIN AND SUBCUTANEOUS TISSUE BELOW IT. A SPINAL NEEDLE, 22-GAUGE, WAS ADVANCED UNDER FLUOROSCOPIC GUIDANCE AND FOLLOWING PATIENT FEEDBACK UNTIL THE TARGET AREA WAS TOUCHED. THE POSITION OF THE NEEDLE WAS VERIFIED WITH AP AND LATERAL VIEWS. AFTER PROPER POSITION OF THE NEEDLE WAS ACHIEVED, ISOVUE M DYE 30%, 0.25 ML, WAS INJECTED SHOWING SPREAD OF THE DYE. THEN, A SOLUTION OF 20 MG OF KENALOG WAS INJECTED IN RIGHT AND LEFT JOINT WITH 3 ML OF BUPIVACAINE 0.125%. THERE WAS NO EVIDENCE OF BLOOD, PARESTHESIA OR CEREBROSPINAL FLUID DURING THE PROCEDURE. THE PATIENT WAS SENT TO THE RECOVERY ROOM. THE PATIENT WAS MOVING THE EXTREMITIES AND DOING WELL. THERE WAS NO COMPLICATION DURING THE PROCEDURE. FLUOROSCOPY TIME WAS 20 SECONDS POST PROCEDURE NOTE THE PATIENT WILL BE SEEN IN A FOLLOW UP IN THE NEXT FEW WEEKS. INSTRUCTIONS WERE GIVEN, QUESTIONS WERE ANSWERED, AND THE PATIENT EXPRESSED UNDERSTANDING AND AGREED WITH THE PLAN. I, JP MONTES, DOCUMENTED THE ABOVE INFORMATION ACTING A SCRIBE FOR DR. CLARK. I HAVE REVIEWED THE ABOVE DOCUMENT, WRITTEN BY JP MCCAULEY AND I VERIFY THAT IT IS ACCURATE. PROCEDURE CODES 6045F RADXPS IN END [id number] PXD [id number] INJECT SACROILIAC JOINT, MODIFIERS: 50 DISPOSITION & COMMUNICATION FOLLOW UP 3 WEEKS ELECTRONICALLY SIGNED BY KATE CLARK MD, MD ON 12/09/2018 AT 07:54 PM EDT DISCLAIMER : THIS IS A VISIT SUMMARY EXTRACTED FROM THE [employer] CHART. IT IS NOT A COPY OF THE [employer] PROGRESS NOTE. MTDD
== END ==
LOC: M PAIN 10:45
PROVIDERS: ATTEND Anesthesiology
DX: G89.29 Other chronic pain (principal); M46.1 Sacroiliitis, not elsewhere classified; M53.88 Other specified dorsopathies, sacral and sacrococcygeal region; F41.9 Anxiety disorder, unspecified; Z79.899 Other long term (current) drug therapy; Z88.6 Allergy status to analgesic agent; Z87.891 Personal history of nicotine dependence
CPT/HCPCS: G0260; J3301; Q9967

== ENCOUNTER → 2018-12-07 | Outpatient (CLI) | payer OTHER ==
[~2018-12-07] MED LIST changes: -BUPIVACAINE HCL 0.25% 30 ML VIAL As Ordered ONE; -ISOVUE-M 300 61% 15ML VIAL (Q9967) As Ordered ONE; -LIDOCAINE 1% SDV INJ 30 ML VIAL As Ordered ONE; -TRIAMCINOLONE ACETONIDE SUSP 40 MG/ML VIAL (J3301) As Ordered ONE; -diazePAM 5 MG TAB As Ordered ONE; -oxyCODONE 5MG TAB As Ordered ONE
--- NOTE | 2018-12-21 01:07 | ECWPNPC ---
PATIENT NAME: JULES LOZANO : 1975 GENDER: FEMALE VISIT DATE: 12/07/2018 DISCHARGE DATE: 12/07/18 1316 VISIT LOCKED DATE TIME: PHYSICIAN: KATE CLARK MD RESOURCE: KATE CLARK MD REASON FOR APPOINTMENT 1. POST PROC *PER DR Lopez* HISTORY OF PRESENT ILLNESS HISTORY OF PRESENT ILLNESS: PAIN THE PATIENT DESCRIBES THE PAIN... 43 YEAR OLD FEMALE PATIENT WITH A HISTORY OF CHRONIC LOW BACK PAIN. THE PATIENT DESCRIBES THE PAIN ACHING, SORE, AND INTERMITTENT WITH A PAIN SCORE OF 0-3/10 DEPENDING ON PHYSICAL ACTIVITY. THE PATIENT WAS HERE FOR A SACROILIAC JOINT BLOCK ON 12/04/2018 AND REPORTS THAT SHE IS DOING BETTER FOLLOWING THE INJECTION. PATIENT DENIES UNEXPLAINABLE WEIGHT LOSS, FEVER, CHILLS, NEW CHANGES ON HER URINARY OR BOWEL CONTROL. FALL RISK SCREENING: SCREENING :NO FALLS REPORTED IN THE LAST YEAR CURRENT MEDICATIONS TAKING ZOLOFT 25 MG TABLET 1 TABLET ORALLY ONCE A DAY, NOTES: 12/03 2199 TAKING GABAPENTIN 300 MG CAPSULE 1 CAPSULE ORALLY ONCE A DAY, NOTES: 12/03 1200 MEDICATION LIST REVIEWED AND RECONCILED WITH THE PATIENT PAST MEDICAL HISTORY CHRONIC LOW BACK ANXIETY ALLERGIES ASPIRIN: SWELLING - ALLERGY IBUPROFEN: SWELLING - ALLERGY SURGICAL HISTORY HYSTERECTOMY 2016 FAMILY HISTORY FATHER: ALIVE 66 YRS, NO KNOWN MEDICAL PROBLEMS MOTHER: ALIVE 65 YRS, NO KNOWN MEDICAL PROBLEMS 2DAUGHTER(S) - HEALTHY. SOCIAL HISTORY GENERAL: TOBACCO USE ARE YOU A:FORMER SMOKER HOW LONG HAS IT BEEN SINCE YOU LAST SMOKED?> 10 YEARS LATEX QUESTIONNAIRE LATEX ALLERGY : HAVE YOU EVER DEVELOPED ANY TYPE OF REACTION AFTER HANDLING LATEX PRODUCTS SUCH RUBBER GLOVES, CONDOMS, DIAPHRAGMS, BALLOONS, SOCKS, OR UNDERWEAR?NO LATEX ALLERGY : HAVE YOU EVER DEVELOPED ANY TYPE OF REACTION DURING OR AFTER DENTAL APPOINTMENT, VAGINAL/RECTAL EXAMINATION, SURGICAL PROCEDURE, OR ANY OTHER EXPOSURE?NO LATEX RISK : HAVE YOU EVER HAD ANY DIFFICULTY BREATHING OR HIVES AFTER EATING OR HANDLING ANY FRUITS, OR VEGETABLES; SUCH KIWI, BANANAS, STONE FRUITS, OR CHESTNUTSNO LATEX RISK : DO YOU HAVE A PREVIOUS PERSONAL HISTORY OF MORE THAN NINE SURGERIES, SPINA BIFIDA, OR REPEATED CATHERTIZATIONS? NO LATEX RISK : ARE YOU FREQUENTLY EXPOSED TO LATEX PRODUCTS IN YOUR OCCUPATION?NO DATE ASKED : 12/04/2018 ALCOHOL SCREENING DID YOU HAVE A DRINK CONTAINING ALCOHOL IN THE PAST YEAR?YES HOW OFTEN DID YOU HAVE A DRINK CONTAINING ALCOHOL IN THE PAST YEAR?TWO TO THREE TIMES PER WEEK (3 POINTS) HOW MANY DRINKS DID YOU HAVE ON A TYPICAL DAY WHEN YOU WERE DRINKING IN THE PAST YEAR?1 OR 2 (0 POINTS) HOW OFTEN DID YOU HAVE SIX OR MORE DRINKS ON ONE OCCASION IN THE PAST YEAR?NEVER (0 POINTS) POINTS3 INTERPRETATIONPOSITIVE RECREATIONAL DRUG USE DRUG USE?NO CAFFEINE CAFFEINE USE?YES HOW OFTEN AND HOW MUCH? OCCASIONAL CATHOLIC [id number] ALEVISM LANGUAGE LANGUAGES SPOKEN:BULGARIAN EDUCATION LEVEL OF EDUCATION:FINISHED COLLEGE LEARNING BARRIERS / SPECIAL NEEDS BARRIERS TO LEARNING?NO HEARING IMPAIRED?NO VISION IMPAIRED?YES :CORRECTIVE LENSES COGNITIVELY IMPAIRED?NO READINESS TO LEARN?YES LEARNING PREFERENCES?NO LEARNING CAPABILITIES PRESENT?YES EMOTIONAL BARRIERS?NO SPECIAL DEVICES?NO EELER NEEDED?NO DOMESTIC VIOLENCE DO YOU FEEL SAFE IN YOUR ENVIRONMENT?YES OCCUPATION: ACTIVE . DIET: REGULAR. EXERCISE: NO REGULAR EXERCISE, WALKS. MARITAL STATUS: . PAIN CLINIC PFS, CLERGY, PUBLIC HEALTH REFERRALS WAS THE PROVIDER NOTIFIED OF ANY PERTINENT INFO? N/A HAS THE PATIENT BEEN EDUCATED REGARDING HIS/HER PLAN OF CARE?YES ORIENTED TO [facility] HAS THE PATIENT BEEN EDUCATED REGARDING PAIN, THE RISK FOR PAIN, THE IMPORTANCE OF EFFECTIVE PAIN MANAGEMENT, AND THE PAIN ASSESSMENT PROCESS?YES ADVANCE DIRECTIVE ADVANCE DIRECTIVE DISCUSSED WITH PATIENT:YES 12/07/18 PT. DOES NOT HAVE ANY ADVANCED DIRECTIVES AND SHE DECLINES INFORMATION ON HCPOR ASSISTANCE AT THIS TIME. LAS REVIEWED WITH PT 12/07/18 1250 LAS. HOSPITALIZATION/MAJOR DIAGNOSTIC PROCEDURE HYSTERECTOMY 2017 REVIEW OF SYSTEMS REVIEWED BY: PROVIDER: KATE CLARK MD . CONSTITUTIONAL: ANY CHANGE IN YOUR MEDICAL CONDITION? NO . CHILLS NO . FEVER NO . INFECTION: DO YOU HAVE NEW INFECTIONS? NO . DO YOU HAVE HISTORY OF MRSA? NO . MUSCULOSKELETAL: ANY NEW PATTERNS OF PAIN OR NUMBNESS? NO . GASTROENTEROLOGY: ANY NEW CHANGE IN BOWEL CONTROL? NO . GENITOURINARY: ANY NEW CHANGE IN BLADDER CONTROL? NO . IS THERE A CHANCE YOU COULD BE ? NO . HEMATOLOGY/LYMPH: DO YOU TAKE ANY BLOOD THINNERS? (FOR EXAMPLE- COUMADIN, PLAVIX, AGGRENOX, PLATEL, PRADAXA, OR XARELTO) NO . WHEN WAS YOUR LAST DOSE? DATE: TIME: . NEUROLOGY: HAVE YOU FALLEN IN THE PAST 12 MONTHS? NO . ANY NEW EXTREMITY NUMBNESS OR WEAKNESS? NO . CARDIOLOGY: DO YOU HAVE A PACEMAKER OR DEFIBRILLATOR? NO . RESPIRATORY: HAVE YOU BEEN SICK IN THE PAST WEEK? NO . FEVER NO . FLU LIKE SYMPTOMS? NO . COUGH NO . INTEGUMENTARY: DO YOU HAVE ANY RASHES OR OPEN SORES? NO . ALLERGIC/IMMUNO: ARE YOU ALLERGIC TO IV DYE? NO . ANY NEW ALLERGIES? NO . PSYCHIATRIC: DO YOU HAVE THOUGHTS OF HURTING YOURSELF OR SOMEONE ELSE? NO . ARE YOU ABUSED, NEGLECTED, OR IN AN UNSAFE ENVIRONMENT? NO . ENDOCRINOLOGY: ARE YOU DIABETIC? NO . OTHER: DO YOU NEED ANY PRESCRIPTIONS? NO . IF YES, PLEASE LIST: ____ . ANY NEW PROBLEMS WITH YOUR MEDICATIONS? NO . WHEN DID YOU LAST EAT? ____ . WHEN DID YOU LAST DRINK? ____ . WHAT DID YOU LAST DRINK? ____ . NAME OF PERSON DRIVING YOU HOME? ____ . DO YOU HAVE ANY OTHER QUESTIONS OR CONCERNS NO . VITAL SIGNS WT 173.0 LBS, HT 66 IN, BMI 27.92 INDEX, BP 126/77 MM HG, HR 67 /MIN, RR 16 /MIN, TEMP 98.5 F, OXYGEN SAT % 99%, SAFE IN ENV? (Y/N) YES, REVIEWED BY: BV. EXAMINATION GENERAL EXAMINATION: PATIENT IS ALERT O X 3 AND COOPERATIVE. TENDERNESS IN THE RIGHT LOW BACK AREA. ASSESSMENTS SACROILIITIS, NOT ELSEWHERE CLASSIFIED - M46.1 (PRIMARY) TREATMENT SACROILIITIS, NOT ELSEWHERE CLASSIFIED CLINICAL NOTES: WE DISCUSSED SEVERAL ISSUES WITH MRS. LOZANO'S PAIN MANAGEMENT CASE. THE PATIENT STATES THAT SHE IS GOING INTO THE FIELD FOR THE NEXT MONTH, SO I WILL GIVE HER 15 HYDROCODONE TABLETS FOR THE MONTH NEEDED FOR THE SOMATIC PAIN. THIS IS NOT TO CONTINUE AN ONGOING TREATMENT BUT FOR THIS OCCASION ONLY. ISTOP __#[id number] WAS REVIEWED. THE PATIENT WILL FOLLOW UP IN 5 WEEKS WHEN SHE RETURNS. INSTRUCTIONS WERE GIVEN, QUESTIONS WERE ANSWERED, PATIENT REPORTS UNDERSTANDING AND AGREES WITH THE PLAN. I, JP MONTES, DOCUMENTED THE ABOVE INFORMATION ACTING A SCRIBE FOR DR. CLARK. I HAVE REVIEWED THE ABOVE DOCUMENT, WRITTEN BY JP MCCAULEY AND I VERIFY THAT IT IS ACCURATE. . OTHERS START HYDROCODONE-ACETAMINOPHEN TABLET, 5-325 MG, 1 TABLET NEEDED, ORALLY, DAILY FOR PAIN MDD1, 30 DAYS, 15, REFILLS 0 PREVENTIVE MEDICINE PAIN CLINIC TEACHING: MEDICATIONS PRINTED INFORMATION FOR HYDROCODONE GIVEN AND REVIEWED WITH PT. PT VERBALIZES UNDERSTANDING . PROCEDURE CODES FA211 ESTABILISHED PATIENT [facility] CHARGE [id number] CURRENT MEDS W/DOSAGES DOCUMENTED [id number] PAIN ASSESS POS TOOL F/U PLAN DOC DISPOSITION & COMMUNICATION FOLLOW UP 5 WEEKS ELECTRONICALLY SIGNED BY KATE CLARK MD, MD ON 12/20/2018 AT 09:57 AM EDT DISCLAIMER : THIS IS A VISIT SUMMARY EXTRACTED FROM THE [employer] CHART. IT IS NOT A COPY OF THE [employer] PROGRESS NOTE. MTDD
== END ==
LOC: M PAIN 12:30
PROVIDERS: ATTEND Anesthesiology
DX: M46.1 Sacroiliitis, not elsewhere classified (principal); M54.5 Low back pain; F41.9 Anxiety disorder, unspecified; Z87.891 Personal history of nicotine dependence; Z79.899 Other long term (current) drug therapy; Z88.6 Allergy status to analgesic agent

== ENCOUNTER → 2019-03-29 | Outpatient (CLI) | payer OTHER ==
--- NOTE | 2019-04-01 23:52 | ECWPNPC ---
PATIENT NAME: JULES LOZANO : 1975 GENDER: FEMALE VISIT DATE: 03/29/2019 DISCHARGE DATE: 03/29/19 1153 VISIT LOCKED DATE TIME: PHYSICIAN: AYLA HE RESOURCE: AYLA HE REASON FOR APPOINTMENT 1. BACK PER DR Lopez HISTORY OF PRESENT ILLNESS HISTORY OF PRESENT ILLNESS: 44 YEAR OLD FEMALE IN FOR POST SIJ FOLLOW UP. WHEN ASKED SHE ADMITS THAT THE SIJ'S WERE NOT HELPFUL. SHE WOULD LIKE TO DISCUSS OTHER PROCEDURES. SHE CURRENTLY RATES HER PAIN AT A 4/10 AND IT IS DESCRIBED SORE, TENDER, AND SHARP. PAIN THE PATIENT DESCRIBES THE PAIN... FALL RISK SCREENING: SCREENING :NO FALLS REPORTED IN THE LAST YEAR CURRENT MEDICATIONS TAKING HYDROCODONE-ACETAMINOPHEN 5-325 MG TABLET 1 TABLET NEEDED ORALLY FOR PAIN EVERY 12 HOURS NEEDED MDD2, NOTES: NOT TAKING TAKING ZOLOFT 25 MG TABLET 1 TABLET ORALLY ONCE A DAY, NOTES: 12/03 2200 TAKING GABAPENTIN 300 MG CAPSULE 1 CAPSULE ORALLY ONCE A DAY, NOTES: 12/03 1200 MEDICATION LIST REVIEWED AND RECONCILED WITH THE PATIENT PAST MEDICAL HISTORY CHRONIC LOW BACK ANXIETY ALLERGIES ASPIRIN: SWELLING - ALLERGY IBUPROFEN: SWELLING - ALLERGY SURGICAL HISTORY HYSTERECTOMY 2017 FAMILY HISTORY FATHER: ALIVE 66 YRS, NO KNOWN MEDICAL PROBLEMS MOTHER: ALIVE 65 YRS, NO KNOWN MEDICAL PROBLEMS 2DAUGHTER(S) - HEALTHY. SOCIAL HISTORY GENERAL: TOBACCO USE ARE YOU A:FORMER SMOKER HOW LONG HAS IT BEEN SINCE YOU LAST SMOKED?> 10 YEARS EDUCATION LEVEL OF EDUCATION:FINISHED COLLEGE DIET: REGULAR. LANGUAGE LANGUAGES SPOKEN:KENYAN DOMESTIC VIOLENCE DO YOU FEEL SAFE IN YOUR ENVIRONMENT?YES RECREATIONAL DRUG USE DRUG USE?NO EXERCISE: NO REGULAR EXERCISE, WALKS. LEARNING BARRIERS / SPECIAL NEEDS BARRIERS TO LEARNING?NO HEARING IMPAIRED?NO VISION IMPAIRED?YES :CORRECTIVE LENSES COGNITIVELY IMPAIRED?NO READINESS TO LEARN?YES LEARNING PREFERENCES?NO LEARNING CAPABILITIES PRESENT?YES EMOTIONAL BARRIERS?NO SPECIAL DEVICES?NO GLASSWORKER NEEDED?NO PAIN CLINIC PFS, CLERGY, PUBLIC HEALTH REFERRALS WAS THE PROVIDER NOTIFIED OF ANY PERTINENT INFO? N/A HAS THE PATIENT BEEN EDUCATED REGARDING HIS/HER PLAN OF CARE?YES ORIENTED TO [facility] HAS THE PATIENT BEEN EDUCATED REGARDING PAIN, THE RISK FOR PAIN, THE IMPORTANCE OF EFFECTIVE PAIN MANAGEMENT, AND THE PAIN ASSESSMENT PROCESS?YES LATEX QUESTIONNAIRE LATEX ALLERGY : HAVE YOU EVER DEVELOPED ANY TYPE OF REACTION AFTER HANDLING LATEX PRODUCTS SUCH RUBBER GLOVES, CONDOMS, DIAPHRAGMS, BALLOONS, SOCKS, OR UNDERWEAR?NO LATEX ALLERGY : HAVE YOU EVER DEVELOPED ANY TYPE OF REACTION DURING OR AFTER DENTAL APPOINTMENT, VAGINAL/RECTAL EXAMINATION, SURGICAL PROCEDURE, OR ANY OTHER EXPOSURE?NO LATEX RISK : HAVE YOU EVER HAD ANY DIFFICULTY BREATHING OR HIVES AFTER EATING OR HANDLING ANY FRUITS, OR VEGETABLES; SUCH KIWI, BANANAS, STONE FRUITS, OR CHESTNUTSNO LATEX RISK : DO YOU HAVE A PREVIOUS PERSONAL HISTORY OF MORE THAN NINE SURGERIES, SPINA BIFIDA, OR REPEATED CATHERIZATIONS? NO LATEX RISK : ARE YOU FREQUENTLY EXPOSED TO LATEX PRODUCTS IN YOUR OCCUPATION?NO DATE ASKED : 12/04/2018 CAFFEINE CAFFEINE USE?YES HOW OFTEN AND HOW MUCH? OCCASIONAL ADVANCE DIRECTIVE ADVANCE DIRECTIVE DISCUSSED WITH PATIENT:YES PT. DOES NOT HAVE ANY ADVANCED DIRECTIVES AND SHE DECLINES INFORMATION ON HCPOR ASSISTANCE AT THIS TIME. LAS TAOIST [id number] BAHAI MARITAL STATUS: . ALCOHOL SCREENING DID YOU HAVE A DRINK CONTAINING ALCOHOL IN THE PAST YEAR?YES HOW OFTEN DID YOU HAVE A DRINK CONTAINING ALCOHOL IN THE PAST YEAR?TWO TO THREE TIMES PER WEEK (3 POINTS) HOW MANY DRINKS DID YOU HAVE ON A TYPICAL DAY WHEN YOU WERE DRINKING IN THE PAST YEAR?1 OR 2 (0 POINTS) HOW OFTEN DID YOU HAVE SIX OR MORE DRINKS ON ONE OCCASION IN THE PAST YEAR?NEVER (0 POINTS) POINTS3 INTERPRETATIONPOSITIVE OCCUPATION: ACTIVE . REVIEWED WITH PT 12/07/18 1250 LASREVIEWED WITH PT 03/29/19 1120 LAS. HOSPITALIZATION/MAJOR DIAGNOSTIC PROCEDURE HYSTERECTOMY 2017 REVIEW OF SYSTEMS REVIEWED BY: PROVIDER: EVI CASILLAS . CONSTITUTIONAL: ANY CHANGE IN YOUR MEDICAL CONDITION? NO . CHILLS NO . FEVER NO . INFECTION: DO YOU HAVE NEW INFECTIONS? NO . DO YOU HAVE HISTORY OF MRSA? NO . MUSCULOSKELETAL: ANY NEW PATTERNS OF PAIN OR NUMBNESS? PT REPORTS AN INCREASE IN PAIN AFTER HELPING CAREGIVER . GASTROENTEROLOGY: ANY NEW CHANGE IN BOWEL CONTROL? NO . GENITOURINARY: ANY NEW CHANGE IN BLADDER CONTROL? NO . IS THERE A CHANCE YOU COULD BE ? NO . HEMATOLOGY/LYMPH: DO YOU TAKE ANY BLOOD THINNERS? (FOR EXAMPLE- COUMADIN, PLAVIX, AGGRENOX, PLATEL, PRADAXA, OR XARELTO) NO . WHEN WAS YOUR LAST DOSE? DATE: TIME: . NEUROLOGY: HAVE YOU FALLEN IN THE PAST 12 MONTHS? NO . ANY NEW EXTREMITY NUMBNESS OR WEAKNESS? NO . CARDIOLOGY: DO YOU HAVE A PACEMAKER OR DEFIBRILLATOR? NO . RESPIRATORY: HAVE YOU BEEN SICK IN THE PAST WEEK? NO . FEVER NO . FLU LIKE SYMPTOMS? NO . COUGH NO . INTEGUMENTARY: DO YOU HAVE ANY RASHES OR OPEN SORES? NO . ALLERGIC/IMMUNO: ARE YOU ALLERGIC TO IV DYE? NO . ANY NEW ALLERGIES? NO . PSYCHIATRIC: DO YOU HAVE THOUGHTS OF HURTING YOURSELF OR SOMEONE ELSE? NO . ARE YOU ABUSED, NEGLECTED, OR IN AN UNSAFE ENVIRONMENT? NO . ENDOCRINOLOGY: ARE YOU DIABETIC? NO . OTHER: DO YOU NEED ANY PRESCRIPTIONS? NO . IF YES, PLEASE LIST: ____ . ANY NEW PROBLEMS WITH YOUR MEDICATIONS? NO . WHEN DID YOU LAST EAT? ____ . WHEN DID YOU LAST DRINK? ____ . WHAT DID YOU LAST DRINK? ____ . NAME OF PERSON DRIVING YOU HOME? ____ . DO YOU HAVE ANY OTHER QUESTIONS OR CONCERNS NO . VITAL SIGNS WT 172 LBS, HT 66 IN, BMI 27.76 INDEX, BP 133/70 MM HG, HR 75 /MIN, RR 16 /MIN, TEMP 96.0 F, OXYGEN SAT % 98%, SAFE IN ENV? (Y/N) YES, NA INITIALS AW 1113, REVIEWED BY: BELINDA. EXAMINATION GENERAL EXAMINATION: GENERALNO ACUTE DISTRESS, WELL NOURISHED AND HYDRATED. PSYCHAPPROPRIATE MOOD AND AFFECT . LUNGS:CLEAR TO AUSCULTATION BILATERALLY, NO WHEEZES, RHONCHI, RALES. HEART:NO MURMURS, REGULAR RATE AND RHYTHM. ASSESSMENTS LUMBAR RADICULOPATHY - M54.16 (PRIMARY) TREATMENT LUMBAR RADICULOPATHY NOTES: EPIDURAL L3-L4, L4-L5. CLINICAL NOTES: 44 YEAR OLD FEMALE IN FOR POST PROCEDURAL FOLLOW UP. SHE RECEIVED BILATERAL SIJ AND DID NOT FEEL IT WAS HELPFUL. GIVEN PRESENTING SYMPTOMS AND RESULTS OF PHYSICAL EXAMINATION RECOMMENDED EPIDURAL WITH POST PROCEDURAL FOLLOW UP. PATIENT HAS EXPRESSED UNDERSTANDING OF AND WAS IN AGREEMENT WITH TX PLAN. GIVEN TIME TO ASK QUESTIONS AND EXPRESS CONCERNS. , ISTOP REGISTRY REVIEWED AND DEMONSTRATES COMPLLIANCE. (REF # [id number] ) BRINGS IN MEDICATIONS WHICH IS APPROPRIATE FOR WHAT WAS DISPENSED. RECENT URINE TOXICOLOGY REVIEWED. NO UNAUTHORIZED MEDICATIONS. NO ILLICIT SUBSTANCES AND PRESCRIBED MEDICATIONS WERE PRESENT. PREVENTIVE MEDICINE PAIN CLINIC TEACHING: PROCEDURE TEACHING LUMBAR EPIDURAL STEROID INJECTION INFORMATION PRINTED AND REVIEWED WITH PT, 03/29/19 BELINDA. PROCEDURE CODES FA211 ESTABILISHED PATIENT [facility] FAC[facility] CHARGE DISPOSITION & COMMUNICATION FOLLOW UP POST PROCEDURE (REASON: EPIDURAL L3-L4, L4-L5) ELECTRONICALLY SIGNED BY DARREN KWAN ON 04/01/2019 AT 09:13 AM EDT DISCLAIMER : THIS IS A VISIT SUMMARY EXTRACTED FROM THE [employer] CHART. IT IS NOT A COPY OF THE [employer] PROGRESS NOTE. GREERD
== END ==
LOC: M PAIN 11:00
PROVIDERS: ATTEND Family Medicine
DX: M54.16 Radiculopathy, lumbar region (principal); F41.9 Anxiety disorder, unspecified; Z90.710 Acquired absence of both cervix and uterus; Z87.891 Personal history of nicotine dependence; Z88.6 Allergy status to analgesic agent; Z79.891 Long term (current) use of opiate analgesic; Z79.899 Other long term (current) drug therapy

== ENCOUNTER → 2019-05-22 | Outpatient (CLI) | payer OTHER ==
[~2019-05-22] MED LIST changes: +ISOVUE-M 300 61% 15ML VIAL (Q9967) As Ordered ONE; +LIDOCAINE 1% SDV INJ 30 ML VIAL As Ordered ONE; +diazePAM 5 MG TAB As Ordered ONE; +methylPREDNISolone SUSP 40 MG/ML (DEPO-medrol) VIAL (J1030) As Ordered ONE; +oxyCODONE 5MG TAB As Ordered ONE
--- NOTE | 2019-05-22 14:06 | REP ---
C-ARM VIEWS LUMBAR SPINE: CLINICAL HISTORY: Pain. Two C-arm views lumbar spine performed during lumbar epidural injection by Dr. Leblanc. A needle is seen in the region of the lower lumbar spine. Small amount of contrast is injected. 9 seconds of fluoroscopy time utilized. Electronically Signed by Guero Cohen MD 05/23/2019 09:32 A
--- NOTE | 2019-06-01 01:26 | ECWPNPC ---
PATIENT NAME: JULES LOZANO : 1975 GENDER: FEMALE VISIT DATE: 05/22/2019 DISCHARGE DATE: 05/22/19 0000 VISIT LOCKED DATE TIME: PHYSICIAN: KATE CLARK MD RESOURCE: KATE CLARK MD REASON FOR APPOINTMENT 1. LESI HISTORY OF PRESENT ILLNESS HISTORY OF PRESENT ILLNESS: PAIN THE PATIENT DESCRIBES THE PAIN... FALL RISK SCREENING: SCREENING :NO FALLS REPORTED IN THE LAST YEAR CURRENT MEDICATIONS TAKING ZOLOFT 25 MG TABLET 1 TABLET ORALLY ONCE A DAY TAKING GABAPENTIN 300 MG CAPSULE 1 CAPSULE ORALLY ONCE A DAY NOT-TAKING HYDROCODONE-ACETAMINOPHEN 5-325 MG TABLET 1 TABLET NEEDED ORALLY FOR PAIN EVERY 12 HOURS NEEDED MDD2, NOTES: NOT TAKING MEDICATION LIST REVIEWED AND RECONCILED WITH THE PATIENT PAST MEDICAL HISTORY CHRONIC LOW BACK ANXIETY ALLERGIES ASPIRIN: SWELLING - ALLERGY IBUPROFEN: SWELLING - ALLERGY SURGICAL HISTORY HYSTERECTOMY 2017 FAMILY HISTORY FATHER: ALIVE 66 YRS, NO KNOWN MEDICAL PROBLEMS MOTHER: ALIVE 65 YRS, NO KNOWN MEDICAL PROBLEMS 2DAUGHTER(S) - HEALTHY. SOCIAL HISTORY GENERAL: TOBACCO USE ARE YOU A:FORMER SMOKER HOW LONG HAS IT BEEN SINCE YOU LAST SMOKED?> 10 YEARS EDUCATION LEVEL OF EDUCATION:FINISHED COLLEGE DIET: REGULAR. LANGUAGE LANGUAGES SPOKEN:GEORGIAN DOMESTIC VIOLENCE DO YOU FEEL SAFE IN YOUR ENVIRONMENT?YES RECREATIONAL DRUG USE DRUG USE?NO EXERCISE: NO REGULAR EXERCISE, WALKS. LEARNING BARRIERS / SPECIAL NEEDS BARRIERS TO LEARNING?NO HEARING IMPAIRED?NO VISION IMPAIRED?YES COGNITIVELY IMPAIRED?NO :CORRECTIVE LENSES READINESS TO LEARN?YES LEARNING PREFERENCES?NO LEARNING CAPABILITIES PRESENT?YES EMOTIONAL BARRIERS?NO SPECIAL DEVICES?NO WHEAT GROWER NEEDED?NO PAIN CLINIC PFS, CLERGY, PUBLIC HEALTH REFERRALS WAS THE PROVIDER NOTIFIED OF ANY PERTINENT INFO? N/A HAS THE PATIENT BEEN EDUCATED REGARDING HIS/HER PLAN OF CARE?YES HAS THE PATIENT BEEN EDUCATED REGARDING PAIN, THE RISK FOR PAIN, THE IMPORTANCE OF EFFECTIVE PAIN MANAGEMENT, AND THE PAIN ASSESSMENT PROCESS?YES LATEX QUESTIONNAIRE LATEX ALLERGY : HAVE YOU EVER DEVELOPED ANY TYPE OF REACTION AFTER HANDLING LATEX PRODUCTS SUCH RUBBER GLOVES, CONDOMS, DIAPHRAGMS, BALLOONS, SOCKS, OR UNDERWEAR?NO LATEX ALLERGY : HAVE YOU EVER DEVELOPED ANY TYPE OF REACTION DURING OR AFTER DENTAL APPOINTMENT, VAGINAL/RECTAL EXAMINATION, SURGICAL PROCEDURE, OR ANY OTHER EXPOSURE?NO LATEX RISK : HAVE YOU EVER HAD ANY DIFFICULTY BREATHING OR HIVES AFTER EATING OR HANDLING ANY FRUITS, OR VEGETABLES; SUCH KIWI, BANANAS, STONE FRUITS, OR CHESTNUTSNO LATEX RISK : DO YOU HAVE A PREVIOUS PERSONAL HISTORY OF MORE THAN NINE SURGERIES, SPINA BIFIDA, OR REPEATED CATHERIZATIONS? NO LATEX RISK : ARE YOU FREQUENTLY EXPOSED TO LATEX PRODUCTS IN YOUR OCCUPATION?NO DATE ASKED : 05/22/2019 CAFFEINE CAFFEINE USE?YES HOW OFTEN AND HOW MUCH? OCCASIONAL ADVANCE DIRECTIVE ADVANCE DIRECTIVE DISCUSSED WITH PATIENT:YES 05/21/19 PT. DOES NOT HAVE ANY ADVANCED DIRECTIVES AND SHE DECLINES INFORMATION ON HCPOR ASSISTANCE AT THIS TIME. AD CHEONDOISM [id number] CONFUCIANIST MARITAL STATUS: . ALCOHOL SCREENING DID YOU HAVE A DRINK CONTAINING ALCOHOL IN THE PAST YEAR?YES HOW OFTEN DID YOU HAVE SIX OR MORE DRINKS ON ONE OCCASION IN THE PAST YEAR?NEVER (0 POINTS) HOW MANY DRINKS DID YOU HAVE ON A TYPICAL DAY WHEN YOU WERE DRINKING IN THE PAST YEAR?1 OR 2 (0 POINTS) HOW OFTEN DID YOU HAVE A DRINK CONTAINING ALCOHOL IN THE PAST YEAR?TWO TO THREE TIMES PER WEEK (3 POINTS) POINTS3 INTERPRETATIONPOSITIVE OCCUPATION: ACTIVE . REVIEWED WITH PT 12/07/18 1250 LASREVIEWED WITH PT 03/29/19 1120 LAS. HOSPITALIZATION/MAJOR DIAGNOSTIC PROCEDURE HYSTERECTOMY 2017 REVIEW OF SYSTEMS REVIEWED BY: PROVIDER: . CONSTITUTIONAL: ANY CHANGE IN YOUR MEDICAL CONDITION? NO . CHILLS NO . FEVER NO . INFECTION: DO YOU HAVE NEW INFECTIONS? NO . DO YOU HAVE HISTORY OF MRSA? NO . MUSCULOSKELETAL: ANY NEW PATTERNS OF PAIN OR NUMBNESS? YES, NUMBNESS LEFT ARM . GASTROENTEROLOGY: ANY NEW CHANGE IN BOWEL CONTROL? NO . GENITOURINARY: ANY NEW CHANGE IN BLADDER CONTROL? NO . IS THERE A CHANCE YOU COULD BE ? NO . HEMATOLOGY/LYMPH: DO YOU TAKE ANY BLOOD THINNERS? (FOR EXAMPLE- COUMADIN, PLAVIX, AGGRENOX, PLATEL, PRADAXA, OR XARELTO) NO . WHEN WAS YOUR LAST DOSE? DATE: TIME: . NEUROLOGY: HAVE YOU FALLEN IN THE PAST 12 MONTHS? NO . ANY NEW EXTREMITY NUMBNESS OR WEAKNESS? NO . CARDIOLOGY: DO YOU HAVE A PACEMAKER OR DEFIBRILLATOR? NO . RESPIRATORY: HAVE YOU BEEN SICK IN THE PAST WEEK? NO . FEVER NO . FLU LIKE SYMPTOMS? NO . COUGH NO . INTEGUMENTARY: DO YOU HAVE ANY RASHES OR OPEN SORES? NO . ALLERGIC/IMMUNO: ARE YOU ALLERGIC TO IV DYE? NO . ANY NEW ALLERGIES? NO . PSYCHIATRIC: DO YOU HAVE THOUGHTS OF HURTING YOURSELF OR SOMEONE ELSE? NO . ARE YOU ABUSED, NEGLECTED, OR IN AN UNSAFE ENVIRONMENT? NO . ENDOCRINOLOGY: ARE YOU DIABETIC? NO . OTHER: DO YOU NEED ANY PRESCRIPTIONS? NO . IF YES, PLEASE LIST: ____ . ANY NEW PROBLEMS WITH YOUR MEDICATIONS? NO . WHEN DID YOU LAST EAT? 05/21 2000 . WHEN DID YOU LAST DRINK? 05/21 2200 . WHAT DID YOU LAST DRINK? WATER . NAME OF PERSON DRIVING YOU HOME? [employer] . DO YOU HAVE ANY OTHER QUESTIONS OR CONCERNS NO PT HAS NOT HAD ANY VACCINES IN THE PAST 30 DAYS . VITAL SIGNS WT 176.4 LBS, HT 66 IN, BMI 28.47 INDEX, BP 117/68 MM HG, HR 66 /MIN, RR 16 /MIN, TEMP 96.9 F, OXYGEN SAT % 99%, SAFE IN ENV? (Y/N) Y, NA INITIALS SC 10:11, REVIEWED BY: AD. ASSESSMENTS INTERVERTEBRAL DISC DISORDER WITH RADICULOPATHY OF LUMBAR REGION - M51.16 (PRIMARY) PROCEDURES PRE PROCEDURE DIAGNOSIS LUMBAR DISC DISORDER WITH RADICULOPATHY POST PROCEDURE DIAGNOSIS LUMBAR DISC DISORDER WITH RADICULOPATHY PROCEDURE LUMBAR EPIDURAL STEROID INJECTION UNDER FLUOROSCOPIC GUIDANCE SURGEON DR. KATE CLARK [facility] NONE ANESTHESIA LOCAL PRE PROCEDURE NOTE THE PATIENT HAS A HISTORY OF CHRONIC LOW BACK PAIN. I EVALUATED THE PATIENT AND REVIEWED THE CHART. I WENT OVER THE RISKS, ALTERNATIVES, AND BENEFITS ASSOCIATED WITH THIS PROCEDURE. THE PATIENT WOULD LIKE TO PROCEED AND GIVE CONSENT TO PERFORMED THE PROCEDURE. THE PATIENT DENIES UNEXPLAINABLE WEIGHT LOSS, FEVER, CHILLS, OR NEW CHANGES IN URINARY OR BOWEL CONTROL. DESCRIPTION OF PROCEDURE THE PATIENT WAS BROUGHT TO THE PROCEDURE ROOM AND PLACED IN THE PRONE POSITION. THE LUMBOSACRAL AREA WAS CLEANED WITH BETADINE SOLUTION AND DRAPED ASEPTICALLY. THE PROCEDURE WAS DONE UNDER STERILE CONDITIONS. I CHECKED LATERALITY AND THE LEVEL WHERE THE PROCEDURE WAS GOING TO BE PERFORMED WITH THE PATIENT AND THE SUPPORTING STAFF AT THE MOMENT OF THE TIME OUT IN THE PROCEDURE ROOM. UNDER FLUOROSCOPIC GUIDANCE, THE TARGET POINT WAS SELECTED AT THE INTERLAMINAR LEVEL OF L4-L5. LIDOCAINE WAS USED TO NUMB THE SKIN AND THE SUBCUTANEOUS TISSUE BELOW IT. EPIDURAL TUOHY NEEDLE, 17-GAUGE, WAS ADVANCED UNDER FLUOROSCOPIC GUIDANCE AND FOLLOWING PATIENT FEEDBACK UNTIL THE EPIDURAL SPACE WAS REACHED, 7 CM DEEP INTO THE SKIN BY THE LOSS OF RESISTANCE TECHNIQUE. ISOVUE M DYE 30%, 0.25 ML, WAS INJECTED SHOWING ADEQUATE SPREAD OF THE DYE. THEN, A SOLUTION OF 3 ML OF NORMAL SALINE WITH DEPO-MEDROL 60 MG WAS INJECTED SLOWLY FOLLOWING PATIENT FEEDBACK. THERE WAS NO EVIDENCE OF BLOOD, PARESTHESIA OR CEREBROSPINAL FLUID DURING THE PROCEDURE. THE PATIENT WAS SENT TO THE RECOVERY ROOM. THE PATIENT WAS MOVING THE EXTREMITIES AND DOING WELL. THERE WAS NO COMPLICATION DURING THE PROCEDURE. FLUOROSCOPY TIME WAS 9 SECONDS. POST PROCEDURE NOTE THE PATIENT WILL BE SEEN IN A FOLLOW UP IN THE NEXT FEW WEEKS. INSTRUCTIONS WERE GIVEN, QUESTIONS WERE ANSWERED, AND THE PATIENT EXPRESSED UNDERSTANDING AND AGREES WITH THE PLAN. I, MARIO BRENNER, DOCUMENTED THE ABOVE INFORMATION ACTING A SCRIBE FOR DR. CLARK. I HAVE REVIEWED THE ABOVE DOCUMENT, WRITTEN BY MARIO ROSALESIBLuis AND I VERIFY THAT IT IS ACCURATE. DIAGNOSTIC IMAGING [facility] FLUORO GUIDE SPINE INJECTION (PAIN)[id number] PROCEDURE CODES 06231 LUMBAR/SACRAL W/ IMAGING 6045F RADXPS IN END [id number] PXD DISPOSITION & COMMUNICATION FOLLOW UP 2 WEEKS ELECTRONICALLY SIGNED BY KATE CLARK MD, MD ON 05/31/2019 AT 11:57 AM EDT DISCLAIMER : THIS IS A VISIT SUMMARY EXTRACTED FROM THE [employer] CHART. IT IS NOT A COPY OF THE [employer] PROGRESS NOTE. MTDD
== END ==
LOC: M PAIN 10:00
PROVIDERS: ATTEND Anesthesiology
DX: M51.16 Intervertebral disc disorders with radiculopathy, lumbar region (principal); F41.9 Anxiety disorder, unspecified; Z87.891 Personal history of nicotine dependence; Z79.899 Other long term (current) drug therapy; Z88.6 Allergy status to analgesic agent
CPT/HCPCS: 62323; J1030; Q9967

== ENCOUNTER → 2019-06-10 | Outpatient (CLI) | payer OTHER ==
[~2019-06-10] MED LIST changes: -ISOVUE-M 300 61% 15ML VIAL (Q9967) As Ordered ONE; -LIDOCAINE 1% SDV INJ 30 ML VIAL As Ordered ONE; -diazePAM 5 MG TAB As Ordered ONE; -methylPREDNISolone SUSP 40 MG/ML (DEPO-medrol) VIAL (J1030) As Ordered ONE; -oxyCODONE 5MG TAB As Ordered ONE
--- NOTE | 2019-06-12 00:48 | ECWPNPC ---
PATIENT NAME: JULES LOZANO : 1975 GENDER: FEMALE VISIT DATE: 06/10/2019 DISCHARGE DATE: 06/10/19 1100 VISIT LOCKED DATE TIME: PHYSICIAN: AYLA HE RESOURCE: AYLA HE REASON FOR APPOINTMENT 1. POST PROC HISTORY OF PRESENT ILLNESS HISTORY OF PRESENT ILLNESS: PAIN THE PATIENT DESCRIBES THE PAIN... 44-YEAR-OLD FEMALE IN FOR POST LESI FOLLOW-UP. SHE RATED HER PAIN PREPROCEDURE AT A 3 UP TO A 10 OUT OF 10 WITH ACTIVITY. SHE RATES HER PAIN POSTPROCEDURE AT A 0-1 OUT OF 10. SHE FEELS THE PROCEDURE HELPED HER. SHE RATES HER PAIN CURRENTLY AT 1-2 OUT OF 10 AND DESCRIBES IT ACHING. FALL RISK SCREENING: SCREENING :NO FALLS REPORTED IN THE LAST YEAR CURRENT MEDICATIONS TAKING ZOLOFT 25 MG TABLET 1 TABLET ORALLY ONCE A DAY TAKING GABAPENTIN 300 MG CAPSULE 1 CAPSULE ORALLY ONCE A DAY NOT-TAKING HYDROCODONE-ACETAMINOPHEN 5-325 MG TABLET 1 TABLET NEEDED ORALLY FOR PAIN EVERY 12 HOURS NEEDED MDD2, NOTES: NOT TAKING MEDICATION LIST REVIEWED AND RECONCILED WITH THE PATIENT PAST MEDICAL HISTORY CHRONIC LOW BACK ANXIETY ALLERGIES ASPIRIN: SWELLING - ALLERGY IBUPROFEN: SWELLING - ALLERGY SURGICAL HISTORY HYSTERECTOMY 2017 FAMILY HISTORY FATHER: ALIVE 66 YRS, NO KNOWN MEDICAL PROBLEMS MOTHER: ALIVE 65 YRS, NO KNOWN MEDICAL PROBLEMS 2DAUGHTER(S) - HEALTHY. SOCIAL HISTORY GENERAL: TOBACCO USE ARE YOU A:FORMER SMOKER HOW LONG HAS IT BEEN SINCE YOU LAST SMOKED?> 10 YEARS EDUCATION LEVEL OF EDUCATION:FINISHED COLLEGE DIET: REGULAR. LANGUAGE LANGUAGES SPOKEN:[place]JIK DOMESTIC VIOLENCE DO YOU FEEL SAFE IN YOUR ENVIRONMENT?YES RECREATIONAL DRUG USE DRUG USE?NO EXERCISE: NO REGULAR EXERCISE, WALKS. 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 N/A HAS THE PATIENT BEEN EDUCATED REGARDING HIS/HER PLAN OF CARE?YES HAS THE PATIENT BEEN EDUCATED REGARDING PAIN, THE RISK FOR PAIN, THE IMPORTANCE OF EFFECTIVE PAIN MANAGEMENT, AND THE PAIN ASSESSMENT PROCESS?YES LATEX QUESTIONNAIRE LATEX ALLERGY : HAVE YOU EVER DEVELOPED ANY TYPE OF REACTION AFTER HANDLING LATEX PRODUCTS SUCH RUBBER GLOVES, CONDOMS, DIAPHRAGMS, BALLOONS, SOCKS, OR UNDERWEAR?NO LATEX ALLERGY : HAVE YOU EVER DEVELOPED ANY TYPE OF REACTION DURING OR AFTER DENTAL APPOINTMENT, VAGINAL/RECTAL EXAMINATION, SURGICAL PROCEDURE, OR ANY OTHER EXPOSURE?NO LATEX RISK : HAVE YOU EVER HAD ANY DIFFICULTY BREATHING OR HIVES AFTER EATING OR HANDLING ANY FRUITS, OR VEGETABLES; SUCH KIWI, BANANAS, STONE FRUITS, OR CHESTNUTSNO LATEX RISK : DO YOU HAVE A PREVIOUS PERSONAL HISTORY OF MORE THAN NINE SURGERIES, SPINA BIFIDA, OR REPEATED CATHERIZATIONS? NO LATEX RISK : ARE YOU FREQUENTLY EXPOSED TO LATEX PRODUCTS IN YOUR OCCUPATION?NO DATE ASKED : 06/10/2019 CAFFEINE CAFFEINE USE?YES HOW OFTEN AND HOW MUCH? OCCASIONAL ADVANCE DIRECTIVE ADVANCE DIRECTIVE DISCUSSED WITH PATIENT:YES 06/10/19 PT. DOES NOT HAVE ANY ADVANCED DIRECTIVES AND SHE DECLINES INFORMATION ON HCPOR ASSISTANCE AT THIS TIME. AD SPIRITISM [id number] ISLAM MARITAL STATUS: . ALCOHOL SCREENING DID YOU HAVE A DRINK CONTAINING ALCOHOL IN THE PAST YEAR?YES HOW OFTEN DID YOU HAVE SIX OR MORE DRINKS ON ONE OCCASION IN THE PAST YEAR?NEVER (0 POINTS) HOW MANY DRINKS DID YOU HAVE ON A TYPICAL DAY WHEN YOU WERE DRINKING IN THE PAST YEAR?1 OR 2 (0 POINTS) HOW OFTEN DID YOU HAVE A DRINK CONTAINING ALCOHOL IN THE PAST YEAR?TWO TO THREE TIMES PER WEEK (3 POINTS) POINTS3 INTERPRETATIONPOSITIVE OCCUPATION: ACTIVE . REVIEWED WITH PT 12/07/18 1250 LASREVIEWED WITH PT 03/29/19 1120 LAS. HOSPITALIZATION/MAJOR DIAGNOSTIC PROCEDURE HYSTERECTOMY 2017 REVIEW OF SYSTEMS REVIEWED BY: PROVIDER: EVI CASILLAS . CONSTITUTIONAL: ANY CHANGE IN YOUR MEDICAL CONDITION? NO . CHILLS NO . FEVER NO . INFECTION: DO YOU HAVE NEW INFECTIONS? NO . DO YOU HAVE HISTORY OF MRSA? NO . MUSCULOSKELETAL: ANY NEW PATTERNS OF PAIN OR NUMBNESS? YES, PAIN IS LESS SINCE PROCEDURE . GASTROENTEROLOGY: ANY NEW CHANGE IN BOWEL CONTROL? NO . GENITOURINARY: ANY NEW CHANGE IN BLADDER CONTROL? NO . IS THERE A CHANCE YOU COULD BE ? NO . HEMATOLOGY/LYMPH: DO YOU TAKE ANY BLOOD THINNERS? (FOR EXAMPLE- COUMADIN, PLAVIX, AGGRENOX, PLATEL, PRADAXA, OR XARELTO) NO . WHEN WAS YOUR LAST DOSE? DATE: TIME: . NEUROLOGY: HAVE YOU FALLEN IN THE PAST 12 MONTHS? NO . ANY NEW EXTREMITY NUMBNESS OR WEAKNESS? YES, LAST 3 LEFT HAND HAS BEEN GOING NUMB INTERMITTENTLY. SHE PLANS ON FOLLOWING UP WITH PCP FOR THIS . CARDIOLOGY: DO YOU HAVE A PACEMAKER OR DEFIBRILLATOR? NO . RESPIRATORY: HAVE YOU BEEN SICK IN THE PAST WEEK? YES SORE THROAT, RUNNY NOSE STARTED 05/24-, FEELS BETTER NOW . FEVER NO . FLU LIKE SYMPTOMS? NO . COUGH NO . INTEGUMENTARY: DO YOU HAVE ANY RASHES OR OPEN SORES? NO . ALLERGIC/IMMUNO: ARE YOU ALLERGIC TO IV DYE? NO . ANY NEW ALLERGIES? NO . PSYCHIATRIC: DO YOU HAVE THOUGHTS OF HURTING YOURSELF OR SOMEONE ELSE? NO . ARE YOU ABUSED, NEGLECTED, OR IN AN UNSAFE ENVIRONMENT? NO . ENDOCRINOLOGY: ARE YOU DIABETIC? NO . OTHER: DO YOU NEED ANY PRESCRIPTIONS? NO . IF YES, PLEASE LIST: ____ . ANY NEW PROBLEMS WITH YOUR MEDICATIONS? NO . WHEN DID YOU LAST EAT? ____ . WHEN DID YOU LAST DRINK? ____ . WHAT DID YOU LAST DRINK? ____ . NAME OF PERSON DRIVING YOU HOME? ____ . DO YOU HAVE ANY OTHER QUESTIONS OR CONCERNS NO . VITAL SIGNS WT 176.4 LBS, HT 66 IN, BMI 28.47 INDEX, BP 132/82 MM HG, HR 79 /MIN, RR 16 /MIN, TEMP 97.4 F, OXYGEN SAT % 97%, NA INITIALS AW 1028, REVIEWED BY: GABBY. EXAMINATION GENERAL EXAMINATION: GENERALNO ACUTE DISTRESS, WELL NOURISHED AND HYDRATED. PSYCHAPPROPRIATE MOOD AND AFFECT . LUNGS:CLEAR TO AUSCULTATION BILATERALLY, NO WHEEZES, RHONCHI, RALES. HEART:NO MURMURS, REGULAR RATE AND RHYTHM. ASSESSMENTS INTERVERTEBRAL DISC DISORDER WITH RADICULOPATHY OF LUMBAR REGION - M51.16 (PRIMARY) TREATMENT INTERVERTEBRAL DISC DISORDER WITH RADICULOPATHY OF LUMBAR REGION CLINICAL NOTES: 44-YEAR-OLD FEMALE IN FOR POST LESI FOLLOW-UP. GIVEN PRESENTING SYMPTOMS AND RESULTS OF PHYSICAL EXAMINATION RECOMMENDED FOLLOW-UP IN 2 MONTHS. PATIENT WILL CALL SHOULD PAIN RETURN PRIOR TO THAT APPOINTMENT. PATIENT HAS EXPRESSED UNDERSTANDING OF AND WAS IN AGREEMENT WITH TREATMENT PLAN. GIVEN TIME TO ASK QUESTIONS AND EXPRESS CONCERNS. PROCEDURE CODES FA211 ESTABILISHED PATIENT [facility] FACILITY CHARGE DISPOSITION & COMMUNICATION FOLLOW UP 2 MONTHS (REASON: CHRONIC PAIN ) ELECTRONICALLY SIGNED BY DARREN KWAN ON 06/11/2019 AT 08:46 AM EDT DISCLAIMER : THIS IS A VISIT SUMMARY EXTRACTED FROM THE [email or web address] CHART. IT IS NOT A COPY OF THE [email or web address] PROGRESS NOTE. YARON
== END ==
LOC: M PAIN 10:00
PROVIDERS: ATTEND Family Medicine
DX: M51.16 Intervertebral disc disorders with radiculopathy, lumbar region (principal); Z86.59 Personal history of other mental and behavioral disorders; Z87.891 Personal history of nicotine dependence; Z88.6 Allergy status to analgesic agent; Z79.899 Other long term (current) drug therapy

== ENCOUNTER → 2019-11-18 | Outpatient (CLI) | payer OTHER ==
--- NOTE | 2019-11-18 11:34 | REPMRS ---
Patient History The patient states she has not had a clinical breast exam in over a year. Family history of colorectal cancer in maternal grandmother. No Hormone Replacement Therapy Digital Woman Screen Mammo: November 18, 2019 - Exam #: [id number] Bilateral CC and MLO view(s) were taken. Technologist: Michelle Little, Technologist Prior study comparison: April 20, 2018, bilateral digital mammo screening bilat, performed at [facility]. April 12, 2016, bilateral digital woman screen mammo, performed at [facility]. May 27, 2013, bilateral digital mammo screening bilat, performed at [facility]. FINDINGS: The breast tissue is heterogeneously dense. This may lower the sensitivity of mammography. There is a moderate amount of heterogeneously dense fibroglandular tissue which is fairly symmetric. There is no interval development of dominant mass, architectural distortion, or grouped microcalcification typical of malignancy. There has been no change in the appearance of the mammogram from the prior studies. 3-D tomosynthesis shows no additional findings. Assessment: BI-RADS/ACR category 1 mammogram. Negative Mammogram. Recommendation Routine screening mammogram of both breasts in 1 year (for women over age 40). This patient's Lifetime Breast Cancer RIsk is estimated at 12.7 %. This mammogram was interpreted with the aid of an FDA-approved computer-aided dectection system. Electronically Signed By: Frederic Burden MD 11/18/19 7453
== END ==
LOC: M WHC 09:16
PROVIDERS: ATTEND General Practice
DX: Z12.31 Encounter for screening mammogram for malignant neoplasm of breast (principal)